=== PATIENT | female | born 1985 | race American Indian/Alaskan Native ===

== ENCOUNTER 2016-07-16 22:40 | Emergency (ER) | payer MEDICAID | END 2016-07-17 01:13 | disposition left against medical advice (07) | LOC: DL.ED 22:40 | DX: Z53.21 Procedure and treatment not carried out due to patient leaving prior to being seen by health care provider (principal) ==

== ENCOUNTER 2016-08-04 17:11 | Emergency (ER) | payer MEDICAID ==
[2016-08-04 18:11] VITALS: BP 137/86
[2016-08-04] MEDS ORDERED: Acetaminophen/HYDROcodone 325-10 MG Tab PO ONE (19:52)
[2016-08-04] MEDS ORDERED: Clindamycin HCl 150 MG Cap PO ONE (19:53)
[2016-08-04] MEDS ORDERED: Lidocaine 2% Viscous Solution 15 ML Cup ONE (20:03)
[2016-08-04] MEDS ORDERED: Lidocaine 2% Viscous Solution 15 ML Cup PO ONE (20:03)
--- NOTE | 2016-08-04 20:03 | EDM.PDOC ---
ED HPI ENT - General Chief Complaint: ENT Problem Stated Complaint: HOLE IN TOOTH Time Seen by Provider: 08/04/16 19:45 Source of Information: Reports: Patient History Limitations: Reports: No limitations - History of Present Illness INITIAL COMMENTS - FREE TEXT/NARRATIVE: This 31 yo female patient reports to the ED with a hole in her tooth (left lower posterior). The patient was seen in the Clinic on Friday, started on Amoxicillin and referred to a dentist. The patient has not been able to get an appointment with the dentist at this time and her pain is getting much worse. The patient has been using OTC medications with little to no symptom relief. 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: Acetaminophen, NSAIDS - Related Data Allergies/ADRs: Allergies Allergy/AdvReac Type Severity Reaction Status Date / Time butorphanol tartrate Allergy Shortness Verified 08/04/16 18:03 [From Stadol] of Breath tramadol Allergy Difficulty Verified 08/04/16 18:03 Breathing Home Meds: Home Meds Insulin Aspart [Novolog Flexpen] 2 units SUBCUT ASDIRECTED PRN 04/12/13 [History ] Sertraline [Zoloft] 125 mg PO DAILY 06/14/14 [History] metFORMIN [Glucophage] 1,000 mg PO BID 06/14/14 [History] Insulin Detemir [Levemir] 65 unit SQ ACBREAKFAST 08/08/14 [History] Albuterol Sulfate [Proventil Hfa] 2 inhalation PO QID PRN 05/25/15 [History] Glimepride 2 mg PO BID 06/03/15 [History] Acetaminophen [Tylenol] 650 mg PO BID 08/07/15 [History] Ibuprofen 400 mg PO BID 08/07/15 [History] ALPRAZolam [Alprazolam] 1 tab PO TID PRN 10/19/15 [History] Insulin Detemir [Levemir] 45 unit SQ BEDTIME 10/29/15 [History] Amoxicillin 500 mg PO BID 08/04/16 [History] Past Medical History - Past Health History Medical/Surgical History: Denies Medical/Surgical History HEENT History: Reports: None Cardiovascular History: Reports: None Respiratory History: Reports: Asthma Gastrointestinal History: Reports: Other (see below) Other Gastrointestinal History: patient has presented to the ED frequently for abdominal pain Genitourinary History: Reports: Pyelonephritis, UTI, recurrent 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 Hematologic History: Reports: None Immunologic History: Reports: None Oncologic (Cancer) History: Reports: None Dermatologic History: Reports: None - Infectious Disease History Infectious Disease History: Reports: Chicken pox Other Infectious Disease History: sore on leg. - Past Surgical History HEENT Surgical History: Reports: Tonsillectomy, Other (see below) Other HEENT Surgeries/Procedures: tubes in ears GI Surgical History: Reports: Cholecystectomy Female Surgical History: Reports: None Social & Family History - Family History Family Medical History: Noncontributory - Tobacco Use Smoking Status *Q: Former Smoker Years of Tobacco use: 1 Packs/Tins Daily: 0.5 Used Tobacco, but Quit: Yes Month Tobacco Last Used: november Second Hand Smoke Exposure: Yes - Caffeine Use Caffeine Use: Reports: None Caffeine Use Comment: daily - Alcohol Use Days Per Week of Alcohol Use: 0 Number of Drinks Per Day: 1 Total Drinks Per Week: 0 - Recreational Drug Use Recreational Drug Use: No - Living Situation & Occupation Living situation: Reports: other (currently in transitional living facility s/p inpt substance abuse treatment August 2015) ED ROS ENT - Review of Systems Review Of Systems: ROS reveals no pertinent complaints other than HPI. ED EXAM, ENT - Physical Exam Exam: See Below Exam Limited By: No limitations General Appearance: alert, WD/WN, moderate distress, obese Eye Exam: bilateral eye: EOMI, normal inspection, PERRL Ears: normal external exam, normal canal, hearing grossly normal, normal TMs Nose: normal inspection, normal mucousa, no blood Mouth/Throat: Normal inspection, Normal gums, Normal lips, Normal oropharynx, Dental abcess, Dental pain, Dental tenderness Head: atraumatic, normocephalic Neck: normal inspection, supple, non-tender, full range of motion Respiratory/Chest: no respiratory distress, lungs clear, normal breath sounds, no accessory muscle use, chest non-tender Cardiovascular: normal peripheral pulses, regular rate, rhythm, no edema, no gallop, no JVD, no murmur, no rub GI/Abdominal: normal bowel sounds, soft, non tender, no organomegaly, no distention, no abnormal bruit, no mass (Female) Exam: Deferred Rectal (Female) Exam: Deferred Back: normal inspection, full range of motion Extremities: normal inspection, normal range of motion, non-tender, no pedal edema, normal capillary refill Neurological: alert, oriented, CN II-XII intact, normal cognition, normal gait, normal reflexes, no motor/sensory deficits Psychiatric: normal affect, normal mood Skin: Warm, Dry, Intact, Normal color, No rash Lymphatic: no adenopathy Course - Vital Signs Last Recorded V/S: Last Vital Signs Temp 35.7 C 08/04/16 18:07 Pulse 80 08/04/16 18:07 Resp 18 08/04/16 18:07 BP 137/86 08/04/16 18:07 Pulse Ox 99 08/04/16 18:07 - Orders/Labs/Meds Orders: Active Orders 24 hr Category Date Time Status Clindamycin HCl [Cleocin] Med 08/04/16 19:53 Once 300 mg PO ONETIME ONE Meds: Medications Discontinued Medications Generic Name Dose Route Start Last Admin Trade Name Nadirq PRN Reason Stop Dose Admin Hydrocodone Bitart/Acetaminophen 1 tab 08/04/16 19:52 [place] 325-10 Mg PO 08/04/16 19:53 ONETIME ONE Departure - Departure Time of Disposition: 19:59 Disposition: Home, Self-Care 01 Condition: fair Clinical Impression: Dental abscess Instructions: Dental Abscess, [id number] Forms: ED Department Discharge Care Plan Goals: The patient was advised of the examination results during the visit. The affected area was sprayed with [place], the patient was given an oral dose of [place] (10/325) and an oral dose of Clindamycin (300 mg) while in the ED. The patient was discharged with Viscous Lidocaine 2% 15 mL to apply 5-10 mL to a cotton ball and apply to the area every 6 hours. The patient was also given a script for Clindamycin (300 mg) #30 to take 1 by mouth 3 times per day for 10 days and Viscous Lidocaine 2% #100 mL to apply 10 mL to a cotton ball applied to the area 4 times per day as needed. The patient should follow-up with a dentist for continued evaluation and further management. - My Orders Last 24 Hours: My Active Orders 08/04/16 19:53 Clindamycin HCl [Cleocin] 300 mg PO ONETIME ONE - Assessment/Plan Last 24 Hours: My Active Orders 08/04/16 19:53 Clindamycin HCl [Cleocin] 300 mg PO ONETIME ONE
== END 2016-08-04 20:08 | disposition home or self-care (01) ==
LOC: DL.ED 17:11
DX: K04.7 Periapical abscess without sinus (principal); J45.909 Unspecified asthma, uncomplicated; F41.9 Anxiety disorder, unspecified; E11.9 Type 2 diabetes mellitus without complications; E66.9 Obesity, unspecified; Z88.5 Allergy status to narcotic agent; Z87.440 Personal history of urinary (tract) infections; Z90.49 Acquired absence of other specified parts of digestive tract; Z79.4 Long term (current) use of insulin; Z79.84 Long term (current) use of oral hypoglycemic drugs; Z79.899 Other long term (current) drug therapy; Z98.890 Other specified postprocedural states; Z87.891 Personal history of nicotine dependence
CPT/HCPCS: 99282; A9270

== ENCOUNTER 2016-08-16 11:38 | Emergency (ER) | payer MEDICAID ==
[2016-08-16 11:46] VITALS: BP 131/74
--- NOTE | 2016-08-16 11:47 | EDM.PDOC ---
ED HPI ENT - General Chief Complaint: ENT Problem Stated Complaint: HOLE IN TOOTH, FACE PAIN Time Seen by Provider: 08/16/16 11:45 Source of Information: Reports: Patient, Old records, RN, RN notes reviewed History Limitations: Reports: No limitations - History of Present Illness INITIAL COMMENTS - FREE TEXT/NARRATIVE: C/O "A hole in tooth" with uncontrolled dental pain. Pt was seen here on 08/04/16 for same tooth pain and tx by Praveen BETANCOURT with Hinkle, Clindamycin 300mg, and Viscous Lidocaine 2%. She was to be referred from clinic to a dentist, but has not been able to see a dentist yet. Now pt reports the pain is radiating to the left ear and scalp/head. Denies fever or chills, or drainage from the tooth or gums. 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, Other medication(s) - Related Data Allergies/ADRs: Allergies Allergy/AdvReac Type Severity Reaction Status Date / Time butorphanol tartrate Allergy Shortness Verified 08/16/16 11:47 [From Stadol] of Breath diclofenac Allergy Itching Verified 08/16/16 11:47 tramadol Allergy Difficulty Verified 08/16/16 11:47 Breathing Home Meds: Home Meds Insulin Aspart [Novolog Flexpen] 23 units SUBCUT ASDIRECTED 04/12/13 [History] Sertraline [Zoloft] 125 mg PO DAILY 06/14/14 [History] metFORMIN [Glucophage] 1,000 mg PO BID 06/14/14 [History] Insulin Detemir [Levemir] 65 unit SQ ACBREAKFAST 08/08/14 [History] Albuterol Sulfate [Proventil Hfa] 2 inhalation PO QID PRN 05/25/15 [History] Glimepride 2 mg PO BID 06/03/15 [History] Acetaminophen [Tylenol] 650 mg PO BID 08/07/15 [History] Ibuprofen 800 mg PO Q8HR PRN 08/07/15 [History] ALPRAZolam [Alprazolam] 1 tab PO TID PRN 10/19/15 [History] Insulin Detemir [Levemir] 45 unit SQ BEDTIME 10/29/15 [History] Past Medical History - Past Health History Medical/Surgical History: Denies Medical/Surgical History HEENT History: Reports: None Cardiovascular History: Reports: None Respiratory History: Reports: Asthma Gastrointestinal History: Reports: Other (see below) Other Gastrointestinal History: patient has presented to the ED frequently for abdominal pain Genitourinary History: Reports: Pyelonephritis, UTI, recurrent 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 Hematologic History: Reports: None Immunologic History: Reports: None Oncologic (Cancer) History: Reports: None Dermatologic History: Reports: None - Infectious Disease History Infectious Disease History: Reports: Chicken pox Other Infectious Disease History: sore on leg. - Past Surgical History HEENT Surgical History: Reports: Tonsillectomy, Other (see below) Other HEENT Surgeries/Procedures: tubes in ears GI Surgical History: Reports: Cholecystectomy Female Surgical History: Reports: None Social & Family History - Family History Family Medical History: Noncontributory - Tobacco Use Smoking Status *Q: Former Smoker Years of Tobacco use: 1 Packs/Tins Daily: 0.5 Used Tobacco, but Quit: Yes Month Tobacco Last Used: november Second Hand Smoke Exposure: Yes - Caffeine Use Caffeine Use: Reports: None Caffeine Use Comment: daily - Alcohol Use Days Per Week of Alcohol Use: 0 Number of Drinks Per Day: 1 Total Drinks Per Week: 0 - Recreational Drug Use Recreational Drug Use: No - Living Situation & Occupation Living situation: Reports: other (currently in transitional living facility s/p inpt substance abuse treatment August 2015) ED ROS ENT - Review of Systems Review Of Systems: ROS reveals no pertinent complaints other than HPI. ED EXAM, ENT - Physical Exam Exam: See Below Exam Limited By: No limitations General Appearance: alert, WD/WN, no apparent distress, obese Eye Exam: bilateral eye: normal inspection Ears: normal external exam, normal canal, hearing grossly normal, normal TMs Nose: normal inspection, normal mucousa, no blood Mouth/Throat: Normal lips, Normal oropharynx, Dental pain, Dental tenderness, Other (dental caries) Head: atraumatic, normocephalic Neck: normal inspection, supple, non-tender, full range of motion Respiratory/Chest: no respiratory distress Cardiovascular: regular rate, rhythm Neurological: alert, oriented, no motor/sensory deficits Psychiatric: normal mood Skin: Warm, Dry, Intact, Normal color, No rash Course - Vital Signs Last Recorded V/S: Last Vital Signs Temp 36.1 C 08/16/16 11:45 Pulse 66 08/16/16 11:45 Resp 18 08/16/16 11:45 BP 131/74 08/16/16 11:45 Pulse Ox 100 08/16/16 11:45 - Orders/Labs/Meds Meds: Medications Discontinued Medications Generic Name Dose Route Start Last Admin Trade Name Nadirq PRN Reason Stop Dose Admin Bupivacaine HCl 10 ml 08/16/16 12:06 08/16/16 12:11 Sensorcaine-Mpf 0.25% INJECT 08/16/16 12:07 10 ml ONETIME ONE Administration Lidocaine HCl 15 ml 08/16/16 12:05 08/16/16 12:11 Xylocaine 2% Viscous MUCMEM 08/16/16 12:06 15 ml ONETIME ONE Administration - Re-Assessments/Exams Free Text/Narrative Re-Assessment/Exam: 08/16/16 12:36 Left mandibular regional dental block with Marcaine 0.25% 6mls, no complications. Departure - Departure Time of Disposition: 12:37 Disposition: Home, Self-Care 01 Condition: fair Clinical Impression: Dental caries, Pain due to dental caries Instructions: Dental Caries Forms: ED Department Discharge Additional Instructions: Rx: Decadron 4mg Rx: Hinkle 5mg/325mg Follow up Friday, August 20 at [facility].
[2016-08-16] MEDS ORDERED: Lidocaine 2% Viscous Solution 15 ML Cup MUCMEM ONE (12:05)
[2016-08-16] MEDS ORDERED: Bupivacaine 0.25% 10 ML SDV INJECT ONE (12:06)
== END 2016-08-16 12:50 | disposition home or self-care (01) ==
LOC: DL.ED 11:38
DX: K02.9 Dental caries, unspecified (principal); J45.909 Unspecified asthma, uncomplicated; F41.9 Anxiety disorder, unspecified; E11.9 Type 2 diabetes mellitus without complications; E66.9 Obesity, unspecified; Z87.891 Personal history of nicotine dependence; Z88.8 Allergy status to other drugs, medicaments and biological substances; Z88.5 Allergy status to narcotic agent; Z79.4 Long term (current) use of insulin; Z79.84 Long term (current) use of oral hypoglycemic drugs; Z79.899 Other long term (current) drug therapy; Z87.440 Personal history of urinary (tract) infections; Z98.890 Other specified postprocedural states; Z90.49 Acquired absence of other specified parts of digestive tract
CPT/HCPCS: 64400; 96372; 99284; A9270

== ENCOUNTER 2016-09-02 20:51 | Emergency (ER) | payer MEDICAID, OTHER ==
--- NOTE | 2016-09-02 21:00 | EDM.PDOC ---
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/ADRs: Allergies butorphanol tartrate [From Stadol] Allergy (Verified 09/02/16 20:57) Shortness of Breath Tingling, got numb, throat felt like it was closing 06/14/14 patient states gets hives diclofenac Allergy (Verified 09/02/16 20:57) Itching tramadol Allergy (Verified 09/02/16 20:57) Difficulty Breathing Nausea 06/14/14 patient states gets hives Home Medications: Ambulatory Orders Insulin Aspart [Novolog Flexpen] 23 units SUBCUT ASDIRECTED 04/12/13 [Confirmed 08/16/16] Sertraline [Zoloft] 125 mg PO DAILY 06/14/14 [Confirmed 08/16/16] metFORMIN [Glucophage] 1,000 mg PO BID 06/14/14 [Confirmed 08/16/16] Insulin Detemir [Levemir] 65 unit SQ ACBREAKFAST 08/08/14 [Confirmed 08/16/16] Albuterol Sulfate [Proventil Hfa] 2 inhalation PO QID PRN 05/25/15 [Confirmed ] Glimepride 2 mg PO BID 06/03/15 [Confirmed 08/16/16] Acetaminophen [Tylenol] 650 mg PO BID 08/07/15 [Confirmed 08/16/16] Ibuprofen 800 mg PO Q8HR PRN 08/07/15 [Confirmed 08/16/16] ALPRAZolam [Alprazolam] 1 tab PO TID PRN 10/19/15 [Confirmed 08/16/16] Insulin Detemir [Levemir] 45 unit SQ BEDTIME 10/29/15 [Confirmed 08/16/16] Past Medical History - Past Health History Medical/Surgical History: Denies Medical/Surgical History HEENT History: Reports: None Cardiovascular History: Reports: None Respiratory History: Reports: Asthma Gastrointestinal History: Reports: Other (see below) Other Gastrointestinal History: patient has presented to the ED frequently for abdominal pain Genitourinary History: Reports: Pyelonephritis, UTI, recurrent 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 Hematologic History: Reports: None Immunologic History: Reports: None Oncologic (Cancer) History: Reports: None Dermatologic History: Reports: None - Infectious Disease History Infectious Disease History: Reports: Chicken pox Other Infectious Disease History: sore on leg. - Past Surgical History HEENT Surgical History: Reports: Tonsillectomy, Other (see below) Other HEENT Surgeries/Procedures: tubes in ears GI Surgical History: Reports: Cholecystectomy Female Surgical History: Reports: None Social & Family History - Family History Family Medical History: Noncontributory - Tobacco Use Smoking Status *Q: Former Smoker Years of Tobacco use: 1 Packs/Tins Daily: 0.5 Used Tobacco, but Quit: Yes Month Tobacco Last Used: november Second Hand Smoke Exposure: Yes - Caffeine Use Caffeine Use: Reports: None Caffeine Use Comment: daily - Alcohol Use Days Per Week of Alcohol Use: 0 Number of Drinks Per Day: 1 Total Drinks Per Week: 0 - Recreational Drug Use Recreational Drug Use: No - Living Situation & Occupation Living situation: Reports: other (currently in transitional living facility s/p in substance abuse treatment August 2015) Review of Systems - Review of Systems Review Of Systems: ROS reveals no pertinent complaints other than HPI. Trauma Exam - Physical Exam Exam: See Below Exam Limited By: No limitations General Appearance: Reports: alert, WD/WN, mild distress, other (tearful) Head: Reports: atraumatic Ears: Reports: hearing grossly normal Throat/Mouth: Reports: Normal voice, No airway compromise Neck: Reports: non-tender, full range of motion Respiratory Exam: Reports: no respiratory distress Cardiovascular: Reports: regular rate, rhythm GI/Abdominal: Reports: soft, non tender Extremities: Reports: pain with movement, tenderness, other (left wrist tender swollen, NV wnl) Neurologic: Reports: no motor/sensory deficits, alert, oriented x 3 Course - Vital Signs Last Recorded V/S: Last Vital Signs Temp 35.7 C 09/02/16 20:58 Pulse 78 09/02/16 20:58 Resp 18 09/02/16 20:58 BP 130/76 09/02/16 20:58 Pulse Ox 98 09/02/16 20:58 - Orders/Labs/Meds Meds: Medications Discontinued Medications Generic Name Dose Route Start Last Admin Trade Name Yolanda PRN Reason Stop Dose Admin Hydrocodone Bitart/Acetaminophen 1 tab 09/02/16 21:12 09/02/16 21:16 [place] 325-10 Mg PO 09/02/16 21:13 1 tab ONETIME ONE Administration - Re-Assessments/Exams Free Text/Narrative Re-Assessment/Exam: 09/02/16 21:38 results discussed with Pt. Departure - Departure Time of Disposition: 21:39 Disposition: Home, Self-Care 01 Condition: good Clinical Impression: Radial styloid fracture Qualifiers: Encounter type: initial encounter Fracture type: closed Fracture alignment: nondisplaced Laterality: left Qualified Code(s): S52.515A - Nondisplaced fracture of left radial styloid process, initial encounter for closed fracture Instructions: Wrist Fracture Treated With Immobilization, [id number] Forms: ED Department Discharge Additional Instructions: 1) wear brace and sling next 4 to 5 days 2) call ORTHOPEDIST TOMORROW
[2016-09-02 21:01] VITALS: BP 130/76
[2016-09-02] MEDS ORDERED: Acetaminophen/HYDROcodone 325-10 MG Tab PO ONE (21:12)
== END 2016-09-02 21:44 | disposition home or self-care (01) ==
LOC: DL.ED 20:51
DX: S52.515A Nondisplaced fracture of left radial styloid process, initial encounter for closed fracture (principal); F41.9 Anxiety disorder, unspecified; E11.9 Type 2 diabetes mellitus without complications; E66.9 Obesity, unspecified; J45.909 Unspecified asthma, uncomplicated; Z88.5 Allergy status to narcotic agent; Z88.8 Allergy status to other drugs, medicaments and biological substances; Z79.4 Long term (current) use of insulin; Z79.84 Long term (current) use of oral hypoglycemic drugs; Z79.899 Other long term (current) drug therapy; Z87.440 Personal history of urinary (tract) infections; Z98.890 Other specified postprocedural states; Z90.49 Acquired absence of other specified parts of digestive tract; Z87.891 Personal history of nicotine dependence; W20.8XXA Other cause of strike by thrown, projected or falling object, initial encounter
CPT/HCPCS: 73110; 99283; A9270; L3908

== ENCOUNTER 2016-09-03 15:48 | Emergency (ER) | payer MEDICAID, OTHER ==
[2016-09-03 15:59] VITALS: BP 140/84
--- NOTE | 2016-09-03 16:02 | EDM.PDOC ---
ED HPI Trauma - General Chief Complaint: Upper Extremity Injury/Pain Stated Complaint: [id number] BROKEN WRIST SOMETHING FELL ON IT Time Seen by Provider: 09/03/16 16:02 Source: Reports: Patient, Old records, RN, RN notes reviewed History Limitations: Reports: No limitations - History of Present Illness INITIAL COMMENTS - FREE TEXT/NARRATIVE: Seen here last night and diagnosed with left wrist fracture. Unable to see primary doctor today for pain management. She was unable to be seen by another provider because she is on a narcotics monitoring program through the state. Denies any new injury. She complains that the velcro splint given last night does not give support and she complains of swelling. Symptom Onset Date: 09/03/16 Severity: moderate Pain/Injury Location: Reports: upper extremity, left Allergies/ADRs: Allergies butorphanol tartrate [From Stadol] Allergy (Verified 09/02/16 20:57) Shortness of Breath Tingling, got numb, throat felt like it was closing 06/14/14 patient states gets hives diclofenac Allergy (Verified 09/02/16 20:57) Itching tramadol Allergy (Verified 09/02/16 20:57) Difficulty Breathing Nausea 06/14/14 patient states gets hives Home Medications: Ambulatory Orders Insulin Aspart [Novolog Flexpen] 23 units SUBCUT ASDIRECTED 04/12/13 [Confirmed 09/03/16] Sertraline [Zoloft] 125 mg PO DAILY 06/14/14 [Confirmed 09/03/16] metFORMIN [Glucophage] 1,000 mg PO BID 06/14/14 [Confirmed 09/03/16] Insulin Detemir [Levemir] 65 unit SQ ACBREAKFAST 08/08/14 [Confirmed 09/03/16] Albuterol Sulfate [Proventil Hfa] 2 inhalation PO QID PRN 05/25/15 [Confirmed ] Glimepride 2 mg PO BID 06/03/15 [Confirmed 09/03/16] Acetaminophen [Tylenol] 650 mg PO BID 08/07/15 [Confirmed 09/03/16] Ibuprofen 800 mg PO Q8HR PRN 08/07/15 [Confirmed 09/03/16] ALPRAZolam [Alprazolam] 1 tab PO TID PRN 10/19/15 [Confirmed 09/03/16] Insulin Detemir [Levemir] 45 unit SQ BEDTIME 10/29/15 [Confirmed 09/03/16] Past Medical History - Past Health History Medical/Surgical History: Denies Medical/Surgical History HEENT History: Reports: None Cardiovascular History: Reports: None Respiratory History: Reports: Asthma Gastrointestinal History: Reports: Other (see below) Other Gastrointestinal History: patient has presented to the ED frequently for abdominal pain Genitourinary History: Reports: Pyelonephritis, UTI, recurrent 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 Hematologic History: Reports: None Immunologic History: Reports: None Oncologic (Cancer) History: Reports: None Dermatologic History: Reports: None - Infectious Disease History Infectious Disease History: Reports: Chicken pox Other Infectious Disease History: sore on leg. - Past Surgical History HEENT Surgical History: Reports: Tonsillectomy, Other (see below) Other HEENT Surgeries/Procedures: tubes in ears GI Surgical History: Reports: Cholecystectomy Female Surgical History: Reports: None Social & Family History - Family History Family Medical History: Noncontributory - Tobacco Use Smoking Status *Q: Former Smoker Years of Tobacco use: 1 Packs/Tins Daily: 0.5 Used Tobacco, but Quit: Yes Month Tobacco Last Used: november Second Hand Smoke Exposure: Yes - Caffeine Use Caffeine Use: Reports: None Caffeine Use Comment: daily - Alcohol Use Days Per Week of Alcohol Use: 0 Number of Drinks Per Day: 1 Total Drinks Per Week: 0 - Recreational Drug Use Recreational Drug Use: No - Living Situation & Occupation Living situation: Reports: other (currently in transitional living facility s/p inpt substance abuse treatment August 2015) Review of Systems - Review of Systems Review Of Systems: ROS reveals no pertinent complaints other than HPI. Trauma Exam - Physical Exam Exam: See Below Exam Limited By: No limitations General Appearance: Reports: alert, WD/WN, no apparent distress Head: Reports: atraumatic, normocephalic Respiratory Exam: Reports: no respiratory distress Cardiovascular: Reports: normal peripheral pulses Extremities: Reports: bony-point tenderness (left radial wrist. ), pain with movement (with moderate swelling left wrist with bruising. ) Neurologic: Reports: no motor/sensory deficits, alert, normal mood/affect, oriented x 3 ED TRAUMA EXTREMITY PROCEDURES - Splinting Left Upper Extremity Splint site: wrist Pre-procedure NV status: normal Post-procedure NV status: normal Splint material: fiberglass Splint design: volar Applied & form fitted by: provider Provider post-splint application NV check: NV status normal, good position Complications: No Course - Vital Signs Last Recorded V/S: Last Vital Signs Temp 36.6 C 09/03/16 15:55 Pulse 72 09/03/16 15:55 Resp 16 09/03/16 15:55 BP 140/84 09/03/16 15:55 Pulse Ox - Orders/Labs/Meds Orders: Active Orders 24 hr Category Date Time Status Splinting [RC] ASDIRECTED Care 09/03/16 16:14 Active Meds: Medications Discontinued Medications Generic Name Dose Route Start Last Admin Trade Name Freq PRN Reason Stop Dose Admin Hydrocodone Bitart/Acetaminophen 1 tab 09/03/16 16:11 09/03/16 16:30 [place] 325-10 Mg PO 09/03/16 16:12 1 tab ONETIME ONE Administration - Radiology Interpretation Free Text/Narrative:: 09/02/16 left wrist x-ray was reviewed. Departure - Departure Time of Disposition: 16:26 Disposition: Home, Self-Care 01 Condition: good Clinical Impression: Left wrist fracture Qualifiers: Encounter type: subsequent encounter Fracture healing: with routine healing Qualified Code(s): S62.102D - Fracture of unspecified carpal bone, left wrist, subsequent encounter for fracture with routine healing Instructions: Wrist Fracture Treated With Immobilization, [id number] Forms: ED Department Discharge Additional Instructions: Go to clinic immediately for prescription from Dr. Burton (her nurse has the prescription). Confirm your appointment for tomorrow with Dr. Jeff Quiñonez. Follow up with orthopedic assistant as previously instructed by Dr. Cruz. - My Orders Last 24 Hours: My Active Orders 09/03/16 16:14 Splinting [RC] ASDIRECTED - Assessment/Plan Last 24 Hours: My Active Orders 09/03/16 16:14 Splinting [RC] ASDIRECTED
[2016-09-03] MEDS ORDERED: Acetaminophen/HYDROcodone 325-10 MG Tab PO ONE (16:11)
== END 2016-09-03 16:40 | disposition home or self-care (01) ==
LOC: DL.ED 15:48
DX: S62.102D Fracture of unspecified carpal bone, left wrist, subsequent encounter for fracture with routine healing (principal); S60.212A Contusion of left wrist, initial encounter; J45.909 Unspecified asthma, uncomplicated; F41.9 Anxiety disorder, unspecified; E11.9 Type 2 diabetes mellitus without complications; E66.9 Obesity, unspecified; Z87.891 Personal history of nicotine dependence; Z87.440 Personal history of urinary (tract) infections; Z79.4 Long term (current) use of insulin; Z79.84 Long term (current) use of oral hypoglycemic drugs; Z79.899 Other long term (current) drug therapy; Z98.890 Other specified postprocedural states; Z90.49 Acquired absence of other specified parts of digestive tract; Z88.5 Allergy status to narcotic agent; Z88.8 Allergy status to other drugs, medicaments and biological substances; W20.8XXD Other cause of strike by thrown, projected or falling object, subsequent encounter
CPT/HCPCS: 29125; 99282; A9270

== ENCOUNTER 2016-09-10 23:12 | Emergency (ER) | payer MEDICAID, OTHER ==
[2016-09-10 23:32] VITALS: BP 165/85
[2016-09-11] MEDS ORDERED: Acetaminophen/HYDROcodone 325-5 MG Tab PO ONE (00:17)
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
== END 2016-09-11 00:39 | disposition home or self-care (01) ==
LOC: DL.ED 23:12
DX: S90.01XA Contusion of right ankle, initial encounter (principal); S90.31XA Contusion of right foot, initial encounter; J45.909 Unspecified asthma, uncomplicated; E11.9 Type 2 diabetes mellitus without complications; F41.9 Anxiety disorder, unspecified; E66.9 Obesity, unspecified; Z87.891 Personal history of nicotine dependence; Z88.8 Allergy status to other drugs, medicaments and biological substances; Z79.899 Other long term (current) drug therapy; Z90.49 Acquired absence of other specified parts of digestive tract; Y04.8XXA Assault by other bodily force, initial encounter
CPT/HCPCS: 73610; 73630; 99283; A9270

== ENCOUNTER 2016-09-19 20:47 | Emergency (ER) | payer MEDICAID, OTHER ==
[2016-09-19] MEDS ORDERED: Acetaminophen/HYDROcodone 325-10 MG Tab PO ONE (22:13)
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
== END 2016-09-19 23:26 | disposition home or self-care (01) ==
LOC: DL.ED 20:47
DX: S50.02XA Contusion of left elbow, initial encounter (principal); J45.909 Unspecified asthma, uncomplicated; F41.9 Anxiety disorder, unspecified; E11.9 Type 2 diabetes mellitus without complications; F17.210 Nicotine dependence, cigarettes, uncomplicated; E66.9 Obesity, unspecified; Z98.890 Other specified postprocedural states; Z88.8 Allergy status to other drugs, medicaments and biological substances; Z88.5 Allergy status to narcotic agent; Z79.4 Long term (current) use of insulin; Z79.84 Long term (current) use of oral hypoglycemic drugs; V49.9XXA Car occupant (driver) (passenger) injured in unspecified traffic accident, initial encounter
CPT/HCPCS: 73070; 99284; A9270

== ENCOUNTER 2016-09-29 14:45 | Emergency (ER) | payer MEDICAID ==
--- NOTE | 2016-09-29 15:11 | EDM.PDOC ---
[id number] 4d TOOTH INFECTION, [id number] Time Seen by Provider: 09/29/16 15:11 Source of Information: Reports: Patient History Limitations: Reports: No Limitations - History of Present Illness INITIAL COMMENTS - FREE TEXT/NARRATIVE: chronic pain in left lower post molar that is cracked. has been seen in ER in August 2016 for this and given pain med and lidocaine gel. told to see dentist and has not had appointment yet. no swelling in jaw/gum. just pain. using over the counter motrin. - Related Data Allergies Allergy/AdvReac Type Severity Reaction Status Date / Time butorphanol tartrate Allergy Shortness Verified 09/29/16 15:11 [From Stadol] of Breath diclofenac Allergy Itching Verified 09/29/16 15:11 tramadol Allergy Difficulty Verified 09/29/16 15:11 Breathing Home Meds: Home Meds Insulin Aspart [Novolog Flexpen] 23 units SUBCUT ASDIRECTED 04/12/13 [History] Sertraline [Zoloft] 125 mg PO DAILY 06/14/14 [History] metFORMIN [Glucophage] 1,000 mg PO BID 06/14/14 [History] Insulin Detemir [Levemir] 65 unit SQ ACBREAKFAST 08/08/14 [History] Albuterol Sulfate [Proventil Hfa] 2 inhalation PO QID PRN 05/25/15 [History] Glimepride 2 mg PO BID 06/03/15 [History] Acetaminophen [Tylenol] 650 mg PO BID 08/07/15 [History] Ibuprofen 800 mg PO Q8HR PRN 08/07/15 [History] ALPRAZolam [Alprazolam] 1 tab PO TID PRN 10/19/15 [History] Insulin Detemir [Levemir] 45 unit SQ BEDTIME 10/29/15 [History] Past Medical History - Past Health History Medical/Surgical History: Denies Medical/Surgical History HEENT History: Reports: None Cardiovascular History: Reports: None Respiratory History: Reports: Asthma Gastrointestinal History: Reports: Other (See Below) Other Gastrointestinal History: patient has presented to the ED frequently for abdominal pain Genitourinary History: Reports: Pyelonephritis, UTI, 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 Hematologic History: Reports: None Immunologic History: Reports: None Oncologic (Cancer) History: Reports: None Dermatologic History: Reports: None - Infectious Disease History Infectious Disease History: Reports: Chicken Pox, MRSA Other Infectious Disease History: sore on leg. - Past Surgical History HEENT Surgical History: Reports: Tonsillectomy, Other (See Below) Musculoskeletal Surgical History: Reports: Carpal Tunnel Social & Family History - Family History Family Medical History: Noncontributory - Tobacco Use Smoking Status *Q: Former Smoker Years of Tobacco use: 2 Packs/Tins Daily: 0.1 Used Tobacco, but Quit: No Month Tobacco Last Used: 05 Second Hand Smoke Exposure: No - Caffeine Use Caffeine Use: Reports: Coffee, Tea Caffeine Use Comment: daily - Alcohol Use Days Per Week of Alcohol Use: 0 Number of Drinks Per Day: 1 Total Drinks Per Week: 0 - Recreational Drug Use Recreational Drug Use: No - Living Situation & Occupation Living situation: Reports: Other ED ROS GENERAL - Review of Systems Review Of Systems: See Below HEENT: Reports: Other (chronic dental pain) ED EXAM, DIZZINESS - Physical Exam Exam: See Below Exam Limited By: No Limitations General Appearance: Alert Ears: Normal External Exam, Normal Canal, Hearing Grossly Normal, Normal TMs Nose: Normal Inspection, Normal Mucosa Throat/Mouth: Normal Inspection, Normal Gums, Other (left lower post molar shows fracture, gum without edema/erythema. no facial swelling. no ant/post lymphadenopathy.) Neck: Normal Inspection, Supple, Non-Tender Respiratory/Chest: No Respiratory Distress, Lungs Clear, Normal Breath Sounds Course - Vital Signs Text/Narrative:: This is chronic and is not new. She has already been seen by ER before. Advised would prescribe motrin, but if she wants something stronger she will need to see dentist or pcp. Her pcp should control any pain meds. She is not in distress , no evidence of infection. She does not want script for motrin. Advise over the counter anbasol, cement to area. She must see her dentist or pcp as this is chronic for a narcotic pain med and definitive care. Last Recorded V/S: Last Vital Signs Temp 36.2 C 05/28/17 15:12 Pulse 70 09/29/16 15:12 Resp 16 09/29/16 15:12 BP 126/76 09/29/16 15:12 Pulse Ox 98 09/29/16 15:12 Departure - Departure Time of Disposition: 15:26 Disposition: Home, Self-Care 01 Condition: good Clinical Impression: Chronic dental pain - Discharge Information Referrals: Billy Burton MD [Primary Care Provider] - Forms: ED Department Discharge Additional Instructions: This dental pain is chronic. You must see a dentist as soon as possible. You must see your primary care provider for any pain management aside from over the counter tylenol or motrin.
[2016-09-29 15:14] VITALS: BP 126/76
== END 2016-09-29 15:32 | disposition home or self-care (01) ==
LOC: DL.ED 14:45
DX: G89.29 Other chronic pain (principal); K08.89 Other specified disorders of teeth and supporting structures; J45.909 Unspecified asthma, uncomplicated; E11.9 Type 2 diabetes mellitus without complications; E66.9 Obesity, unspecified; Z87.891 Personal history of nicotine dependence; Z88.8 Allergy status to other drugs, medicaments and biological substances; Z88.6 Allergy status to analgesic agent; Z79.899 Other long term (current) drug therapy; Z79.4 Long term (current) use of insulin; Z87.440 Personal history of urinary (tract) infections; F41.9 Anxiety disorder, unspecified; Z79.84 Long term (current) use of oral hypoglycemic drugs; Z98.890 Other specified postprocedural states
CPT/HCPCS: 99282

== ENCOUNTER 2016-10-11 08:46 | Emergency (ER) | payer MEDICAID, OTHER ==
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
[2016-10-11 09:02] VITALS: BP 141/90
[2016-10-11 09:31] LABS: CHLORIDE,CL 103 mmol/L (101-111); SODIUM,NA 134 mmol/L (135-145)
[2016-10-11] MEDS ORDERED: Clindamycin HCl 150 MG Cap PO ONE (09:35)
[2016-10-11] MEDS ORDERED: Bacitracin Oint 1 GM U/D Packet TOP ONE (09:35)
[2016-10-11] MEDS ORDERED: Acetaminophen/HYDROcodone 325-10 MG Tab PO ONE (09:36)
--- NOTE | 2016-10-11 10:03 | CR ---
Medical history: 31-year-old female right foot and ankle injury. Interpretation: Abnormal. 3 views right foot and additional views ipsilateral right confirm bimalleolar soft tissue swelling, ankle joint effusion, and acute spiral nondisplaced fracture of the distal right fibula. No associat ed fractures of the adjacent right tibia or disruption of the tibiotalar mortise joint. Small heel spur at the insertion plantar aponeurosis base of the os calcis. No foreign bodies. No metatarsal or forefoot fracture/dislocation right foot. Nondisplaced abnormal. Views left views o f the foot injury
--- NOTE | 2016-10-11 10:05 | CR ---
Conclusion: Severe sprain and nondisplaced fracture distal right fibula.
== END 2016-10-11 10:16 | disposition home or self-care (01) ==
LOC: DL.ED 08:46
DX: S82.831A Other fracture of upper and lower end of right fibula, initial encounter for closed fracture (principal); E11.621 Type 2 diabetes mellitus with foot ulcer; L97.511 Non-pressure chronic ulcer of other part of right foot limited to breakdown of skin; J45.909 Unspecified asthma, uncomplicated; F41.9 Anxiety disorder, unspecified; E66.9 Obesity, unspecified; Z87.891 Personal history of nicotine dependence; Z98.890 Other specified postprocedural states; Z88.5 Allergy status to narcotic agent; Z88.8 Allergy status to other drugs, medicaments and biological substances; Z79.4 Long term (current) use of insulin; Z87.440 Personal history of urinary (tract) infections; X58.XXXA Exposure to other specified factors, initial encounter
CPT/HCPCS: 36415; 73610; 73630; 80048; 85025; 86140; 99283; A9270

== ENCOUNTER 2016-10-13 15:52 | Emergency (ER) | payer MEDICAID ==
--- NOTE | 2016-10-13 16:12 | EDM.PDOC ---
ED HPI GENERAL MEDICAL PROBLEM - General Chief Complaint: Lower Extremity Injury/Pain Stated Complaint: SEVERE PAIN IN ANKLE Time Seen by Provider: 10/13/16 16:12 Source of Information: Reports: Patient, Old Records, RN, RN Notes Reviewed History Limitations: Reports: No Limitations - History of Present Illness INITIAL COMMENTS - FREE TEXT/NARRATIVE: Complaining of right ankle pain due to fracture and she has run out of pain medications. Quality: Reports: Ache Severity: Severe Improves with: Reports: None Worsens with: Reports: None Associated Symptoms: Reports: No Other Symptoms Right Leg Pain Score (Numeric/FACES): 9 - Related Data Allergies Allergy/AdvReac Type Severity Reaction Status Date / Time butorphanol tartrate Allergy Shortness Verified 10/13/16 16:22 [From Stadol] of Breath diclofenac Allergy Itching Verified 10/13/16 16:22 tramadol Allergy Difficulty Verified 10/13/16 16:22 Breathing Home Meds: Home Meds Insulin Aspart [Novolog Flexpen] 23 units SUBCUT ASDIRECTED 04/12/13 [History] Sertraline [Zoloft] 125 mg PO DAILY 06/14/14 [History] metFORMIN [Glucophage] 1,000 mg PO BID 06/14/14 [History] Insulin Detemir [Levemir] 65 unit SQ ACBREAKFAST 08/08/14 [History] Albuterol Sulfate [Proventil Hfa] 2 inhalation PO QID PRN 05/25/15 [History] Glimepride 2 mg PO BID 06/03/15 [History] Acetaminophen [Tylenol] 650 mg PO BID 08/07/15 [History] Ibuprofen 800 mg PO Q8HR PRN 08/07/15 [History] ALPRAZolam [Alprazolam] 1 tab PO TID PRN 10/19/15 [History] Insulin Detemir [Levemir] 45 unit SQ BEDTIME 10/29/15 [History] Past Medical History - Past Health History Medical/Surgical History: Denies Medical/Surgical History HEENT History: Reports: None Cardiovascular History: Reports: None Respiratory History: Reports: Asthma Gastrointestinal History: Reports: Other (See Below) Other Gastrointestinal History: patient has presented to the ED frequently for abdominal pain Genitourinary History: Reports: Pyelonephritis, UTI, 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 Hematologic History: Reports: None Immunologic History: Reports: None Oncologic (Cancer) History: Reports: None Dermatologic History: Reports: None - Infectious Disease History Infectious Disease History: Reports: Chicken Pox, MRSA Other Infectious Disease History: sore on leg. - Past Surgical History HEENT Surgical History: Reports: Tonsillectomy, Other (See Below) Musculoskeletal Surgical History: Reports: Carpal Tunnel Social & Family History - Family History Family Medical History: Noncontributory - Tobacco Use Smoking Status *Q: Former Smoker Years of Tobacco use: 2 Packs/Tins Daily: 0.1 Used Tobacco, but Quit: No Month Tobacco Last Used: 05 Second Hand Smoke Exposure: No - Caffeine Use Caffeine Use: Reports: Coffee, Tea Caffeine Use Comment: daily - Alcohol Use Days Per Week of Alcohol Use: 0 Number of Drinks Per Day: 1 Total Drinks Per Week: 0 - Recreational Drug Use Recreational Drug Use: No - Living Situation & Occupation Living situation: Reports: Other Review of Systems - Review of Systems Review Of Systems: ROS reveals no pertinent complaints other than HPI. ED EXAM, GENERAL - Physical Exam Exam: See Below Exam Limited By: No Limitations General Appearance: Obese Respiratory/Chest: No Respiratory Distress Extremities: Other (right lower extremity in high ortho boot. Moderate swelling and bruising. No erythema. Skin is intact.) Neurological: Alert, Oriented, CN II-XII Intact, Normal Cognition, Normal Gait, Normal Reflexes, No Motor/Sensory Deficits Psychiatric: Normal Affect, Normal Mood Course - Vital Signs Last Recorded V/S: Last Vital Signs Temp 35.5 C 10/13/16 16:16 Pulse 72 10/13/16 16:16 Resp 16 10/13/16 16:16 BP 136/87 10/13/16 16:16 Pulse Ox 99 10/13/16 16:16 Departure - Departure Time of Disposition: 16:29 Disposition: Home, Self-Care 01 Condition: good Clinical Impression: Closed traumatic nondisplaced fracture of distal end of right fibula Qualifiers: Encounter type: subsequent encounter Fracture healing: with routine healing Qualified Code(s): S82.831D - Other fracture of upper and lower end of right fibula, subsequent encounter for closed fracture with routine healing - Discharge Information Instructions: Undisplaced Fibular Ankle Fracture Treated With Immobilization, Adult Forms: ED Department Discharge Additional Instructions: RX: Vicodin 10mg/325mg #4. Follow up in clinic tomorrow for pain management.
[2016-10-13 16:21] VITALS: BP 136/87
[2016-10-13] MEDS ORDERED: Acetaminophen/HYDROcodone 325-10 MG Tab ONE (16:32)
[2016-10-13] MEDS ORDERED: Acetaminophen/HYDROcodone 325-10 MG Tab PO ONE (16:35)
== END 2016-10-13 16:52 | disposition home or self-care (01) ==
LOC: DL.ED 15:52
DX: S82.831D Other fracture of upper and lower end of right fibula, subsequent encounter for closed fracture with routine healing (principal); J45.909 Unspecified asthma, uncomplicated; X58.XXXD Exposure to other specified factors, subsequent encounter; Z87.891 Personal history of nicotine dependence; Z87.440 Personal history of urinary (tract) infections; E11.9 Type 2 diabetes mellitus without complications; E66.9 Obesity, unspecified; F41.9 Anxiety disorder, unspecified; Z88.8 Allergy status to other drugs, medicaments and biological substances; Z88.5 Allergy status to narcotic agent; Z79.4 Long term (current) use of insulin
CPT/HCPCS: 99283; A9270

== ENCOUNTER 2016-10-14 11:53 | Emergency (ER) | payer MEDICAID ==
[2016-10-14 12:21] VITALS: BP 119/64
[2016-10-14] MEDS ORDERED: Acetaminophen/HYDROcodone 325-10 MG Tab PO ONE (12:33)
--- NOTE | 2016-10-14 12:33 | EDM.PDOC ---
ED HPI GENERAL MEDICAL PROBLEM - General Chief Complaint: Lower Extremity Injury/Pain Stated Complaint: PAIN Time Seen by Provider: 10/14/16 12:15 Source of Information: Reports: Patient, Family, Old Records, Provider (Dr. Burton), RN, RN Notes Reviewed History Limitations: Reports: No Limitations - History of Present Illness INITIAL COMMENTS - FREE TEXT/NARRATIVE: Pt comes to ER from [facility] with c/o uncontrolled pain from a right distal fibula fracture, and request for a "pain shot" and stronger pain pills than Dr. Burton prescribed. Pt received a Rx for hydrocodone on the day the fracture was diagnosed, which was to last until she could f/u in clinic. However, she returned to the ER yesterday and was out of pain medication because she "had to double the dose to get it to help". She was d/c'd from the ER yesterday with 4 tablets of hydrocodone and instructed to f/u in clinic today for pain management with her PCP. I spoke with Dr. Burton who states that just 15-30 minutes prior to pt arriving at the ER she gave the pt a prescription for [place] to control her pain. Pt states the the [place] does not help her pain. I explained to the pt that she is now under the care of her PCP and will be seen by the orthopedic surgeon tomorrow at 11:30AM, and that I cannot provide any further narcotic pain prescriptions to her for this condition. Pt is disappointed but accepts that she will not receive an injection or prescription from the ER today. 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) Right Feet Pain Score (Numeric/FACES): 10 - Related Data Allergies Allergy/AdvReac Type Severity Reaction Status Date / Time butorphanol tartrate Allergy Shortness Verified 10/14/16 12:09 [From Stadol] of Breath diclofenac Allergy Itching Verified 10/14/16 12:09 tramadol Allergy Difficulty Verified 10/14/16 12:09 Breathing Home Meds: Home Meds Insulin Aspart [Novolog Flexpen] 23 units SUBCUT ASDIRECTED 04/12/13 [History] Sertraline [Zoloft] 125 mg PO DAILY 06/14/14 [History] metFORMIN [Glucophage] 1,000 mg PO BID 06/14/14 [History] Insulin Detemir [Levemir] 65 unit SQ ACBREAKFAST 08/08/14 [History] Albuterol Sulfate [Proventil Hfa] 2 inhalation PO QID PRN 05/25/15 [History] Glimepride 2 mg PO BID 06/03/15 [History] Acetaminophen [Tylenol] 650 mg PO BID 08/07/15 [History] Ibuprofen 800 mg PO Q8HR PRN 08/07/15 [History] ALPRAZolam [Alprazolam] 1 tab PO TID PRN 10/19/15 [History] Insulin Detemir [Levemir] 45 unit SQ BEDTIME 10/29/15 [History] Hydrocodone/Acetaminophen [Hydrocodon-Acetaminophen 5-325] 1 tab PO Q6H PRN 04/20 [History] Past Medical History - Past Health History Medical/Surgical History: Denies Medical/Surgical History HEENT History: Reports: None Cardiovascular History: Reports: None Respiratory History: Reports: Asthma Gastrointestinal History: Reports: Other (See Below) Other Gastrointestinal History: patient has presented to the ED frequently for abdominal pain Genitourinary History: Reports: Pyelonephritis, UTI, 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 Hematologic History: Reports: None Immunologic History: Reports: None Oncologic (Cancer) History: Reports: None Dermatologic History: Reports: None - Infectious Disease History Infectious Disease History: Reports: Chicken Pox, MRSA Other Infectious Disease History: sore on leg. - Past Surgical History HEENT Surgical History: Reports: Tonsillectomy, Other (See Below) Musculoskeletal Surgical History: Reports: Carpal Tunnel Social & Family History - Family History Family Medical History: Noncontributory - Tobacco Use Smoking Status *Q: Former Smoker Years of Tobacco use: 2 Packs/Tins Daily: 0.1 Used Tobacco, but Quit: No Month Tobacco Last Used: 05 Second Hand Smoke Exposure: No - Caffeine Use Caffeine Use: Reports: Coffee, Tea Caffeine Use Comment: daily - Alcohol Use Days Per Week of Alcohol Use: 0 Number of Drinks Per Day: 1 Total Drinks Per Week: 0 - Recreational Drug Use Recreational Drug Use: No - Living Situation & Occupation Living situation: Reports: Other Review of Systems - Review of Systems Review Of Systems: ROS reveals no pertinent complaints other than HPI. ED EXAM, GENERAL - Physical Exam Exam: See Below Exam Limited By: No Limitations General Appearance: Alert, WD/WN, No Apparent Distress, Obese Respiratory/Chest: No Respiratory Distress Extremities: Other (splint boot is not removed) Neurological: Alert, Oriented, No Motor/Sensory Deficits Psychiatric: Normal Affect, Normal Mood Skin Exam: Warm, Dry Course - Vital Signs Last Recorded V/S: Last Vital Signs Temp 36.3 C 10/14/16 12:11 Pulse 75 10/14/16 12:11 Resp 16 10/14/16 12:11 BP 119/64 10/14/16 12:11 Pulse Ox 99 10/14/16 12:11 - Orders/Labs/Meds Meds: Medications Discontinued Medications Generic Name Dose Route Start Last Admin Trade Name Freq PRN Reason Stop Dose Admin Hydrocodone Bitart/Acetaminophen 1 tab 10/14/16 12:33 [place] 325-10 Mg PO 10/14/16 12:34 ONETIME ONE Departure - Departure Time of Disposition: 12:31 Disposition: Home, Self-Care 01 Condition: good Clinical Impression: Closed fracture of right distal fibula Qualifiers: Encounter type: subsequent encounter Fracture morphology: unspecified fracture morphology Fracture healing: with routine healing Qualified Code(s): S82.831D - Other fracture of upper and lower end of right fibula, subsequent encounter for closed fracture with routine healing - Discharge Information Forms: ED Department Discharge Additional Instructions: Follow up with your primary doctor for pain management.
== END 2016-10-14 12:50 | disposition home or self-care (01) ==
LOC: DL.ED 11:53
DX: S82.831D Other fracture of upper and lower end of right fibula, subsequent encounter for closed fracture with routine healing (principal); J45.909 Unspecified asthma, uncomplicated; E11.9 Type 2 diabetes mellitus without complications; E66.9 Obesity, unspecified; F41.9 Anxiety disorder, unspecified; Z87.891 Personal history of nicotine dependence; Z87.440 Personal history of urinary (tract) infections; Z79.4 Long term (current) use of insulin; Z79.84 Long term (current) use of oral hypoglycemic drugs; Z88.5 Allergy status to narcotic agent; Z88.8 Allergy status to other drugs, medicaments and biological substances; Z98.890 Other specified postprocedural states; Z79.899 Other long term (current) drug therapy
CPT/HCPCS: 99283; A9270

== ENCOUNTER 2016-11-23 16:37 | Emergency (ER) | payer MEDICAID ==
[2016-11-23 17:08] VITALS: BP 127/85
[2016-11-23] MEDS ORDERED: Acetaminophen/HYDROcodone 325-10 MG Tab PO ONE (20:11)
--- NOTE | 2016-11-23 20:15 | EDM.PDOC ---
ED HPI GENERAL MEDICAL PROBLEM - General Chief Complaint: Lower Extremity Injury/Pain Stated Complaint: ANKLE IS HURTING/CRACKING, [id number] Time Seen by Provider: 11/23/16 20:11 Source of Information: Reports: Patient History Limitations: Reports: No Limitations - History of Present Illness INITIAL COMMENTS - FREE TEXT/NARRATIVE: lost balance on uneven floor and re-injured right ankle. Right Ankle Pain Score (Numeric/FACES): 7 - Related Data Allergies Allergy/AdvReac Type Severity Reaction Status Date / Time butorphanol tartrate Allergy Shortness Verified 10/14/16 12:09 [From Stadol] of Breath diclofenac Allergy Itching Verified 10/14/16 12:09 tramadol Allergy Difficulty Verified 10/14/16 12:09 Breathing Home Meds: Home Meds Insulin Aspart [Novolog Flexpen] 23 units SUBCUT ASDIRECTED 04/12/13 [History] Sertraline [Zoloft] 125 mg PO DAILY 06/14/14 [History] metFORMIN [Glucophage] 1,000 mg PO BID 06/14/14 [History] Insulin Detemir [Levemir] 60 unit SQ ACBREAKFAST 08/08/14 [History] Albuterol Sulfate [Proventil Hfa] 2 inhalation PO QID PRN 05/25/15 [History] Glimepride 2 mg PO BID 06/03/15 [History] Acetaminophen [Tylenol] 650 mg PO BID 08/07/15 [History] Ibuprofen 800 mg PO Q8HR PRN 08/07/15 [History] ALPRAZolam [Alprazolam] 1 tab PO TID PRN 10/19/15 [History] Insulin Detemir [Levemir] 40 unit SQ BEDTIME 10/29/15 [History] Past Medical History - Past Health History Medical/Surgical History: Denies Medical/Surgical History HEENT History: Reports: None Cardiovascular History: Reports: High Cholesterol, Hypertension Respiratory History: Reports: Asthma Gastrointestinal History: Reports: Other (See Below) Other Gastrointestinal History: patient has presented to the ED frequently for abdominal pain Genitourinary History: Reports: Pyelonephritis, UTI, 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 Hematologic History: Reports: None Immunologic History: Reports: None Oncologic (Cancer) History: Reports: None Dermatologic History: Reports: None - Infectious Disease History Infectious Disease History: Reports: Chicken Pox, MRSA Other Infectious Disease History: sore on leg. - Past Surgical History Head Surgeries/Procedures: Reports: None HEENT Surgical History: Reports: Tonsillectomy, Other (See Below) Musculoskeletal Surgical History: Reports: Carpal Tunnel Social & Family History - Family History Family Medical History: Noncontributory - Tobacco Use Smoking Status *Q: Never Smoker Years of Tobacco use: 2 Packs/Tins Daily: 0.1 Used Tobacco, but Quit: No Month Tobacco Last Used: 05 Second Hand Smoke Exposure: No - Caffeine Use Caffeine Use: Reports: Coffee, Tea Caffeine Use Comment: daily - Alcohol Use Days Per Week of Alcohol Use: 1 Number of Drinks Per Day: 1 Total Drinks Per Week: 1 - Recreational Drug Use Recreational Drug Use: No - Living Situation & Occupation Living situation: Reports: Other Review of Systems - Review of Systems Review Of Systems: ROS reveals no pertinent complaints other than HPI. ED EXAM, GENERAL - Physical Exam Exam: See Below Exam Limited By: No Limitations General Appearance: Alert, WD/WN, Mild Distress, Other (crying) Ears: Hearing Grossly Normal Throat/Mouth: Normal Voice, No Airway Compromise Head: Atraumatic Neck: Non-Tender, Full Range of Motion Respiratory/Chest: No Respiratory Distress Cardiovascular: Regular Rate, Rhythm GI/Abdominal: Soft, Non-Tender Extremities: Other (right ankle tender R/P, NV wnl, gait limited to pain) Neurological: Alert, Oriented, Normal Cognition, No Motor/Sensory Deficits Psychiatric: Tearful Skin Exam: Warm, Dry Lymphatic: No Adenopathy Course - Vital Signs Last Recorded V/S: Last Vital Signs Temp 35.7 C 11/23/16 17:07 Pulse 88 11/23/16 17:07 Resp 16 11/23/16 17:07 BP 127/85 11/23/16 17:07 Pulse Ox 100 11/23/16 17:07 - Orders/Labs/Meds Orders: Active Orders 24 hr Category Date Time Status Acetaminophen/HYDROcodone [[place] 325-10 MG] Med 11/23/16 20:11 Once 1 tab PO ONETIME ONE Departure - Departure Time of Disposition: 20:13 Disposition: Home, Self-Care 01 Condition: Good Clinical Impression: Fracture of fibula - Discharge Information Instructions: Ankle Fracture, [id number] Forms: ED Department Discharge Additional Instructions: 1) elevate leg as much as possible 2) wear CAST BOOT 3) call ORTHO tomorrow about ankle fracture - My Orders Last 24 Hours: My Active Orders 11/23/16 20:11 Acetaminophen/HYDROcodone [[place] 325-10 MG] 1 tab PO ONETIME ONE - Assessment/Plan Last 24 Hours: My Active Orders 11/23/16 20:11 Acetaminophen/HYDROcodone [[place] 325-10 MG] 1 tab PO ONETIME ONE
== END 2016-11-23 20:22 | disposition home or self-care (01) ==
LOC: DL.ED 16:37
DX: S82.831D Other fracture of upper and lower end of right fibula, subsequent encounter for closed fracture with routine healing (principal); E78.00 Pure hypercholesterolemia, unspecified; I10 Essential (primary) hypertension; J45.909 Unspecified asthma, uncomplicated; E11.9 Type 2 diabetes mellitus without complications; E66.9 Obesity, unspecified; F41.9 Anxiety disorder, unspecified; Z98.890 Other specified postprocedural states; Z79.4 Long term (current) use of insulin; Z79.899 Other long term (current) drug therapy; W18.30XD Fall on same level, unspecified, subsequent encounter
CPT/HCPCS: 73610; 99284; A9270

== ENCOUNTER 2016-12-22 17:04 | Emergency (ER) | payer MEDICAID ==
[2016-12-22 17:21] VITALS: BP 137/74
--- NOTE | 2016-12-22 18:01 | EDM.PDOC ---
ED HPI GENERAL MEDICAL PROBLEM - General Chief Complaint: Lower Extremity Injury/Pain Stated Complaint: FRACTURED ANKLE/FELL AND BURNING PAIN Time Seen by Provider: 12/22/16 17:55 Source of Information: Reports: Patient History Limitations: Reports: No Limitations - History of Present Illness INITIAL COMMENTS - FREE TEXT/NARRATIVE: 31 yo [place] Female w/ PMHx. of Distal Fibia Fracture in October 2016. Pt. states today @ 12 :30 PM she tripped and fell while in her storage room and having more pain Onset: Today Onset Date: 12/22/16 Onset Time: 12:30 Duration: Hour(s): Location: Reports: Lower Extremity, Right Quality: Reports: Ache Severity: Moderate Improves with: Reports: Rest Worsens with: Reports: Movement Context: Reports: Trauma (Pt. reports tripping and falling backwards) Associated Symptoms: Reports: No Other Symptoms Right Feet Pain Score (Numeric/FACES): 7 - Related Data Allergies Allergy/AdvReac Type Severity Reaction Status Date / Time butorphanol tartrate Allergy Shortness Verified 12/22/16 17:21 [From Stadol] of Breath diclofenac Allergy Itching Verified 12/22/16 17:21 tramadol Allergy Difficulty Verified 12/22/16 17:21 Breathing Home Meds: Home Meds Insulin Aspart [Novolog Flexpen] 23 units SUBCUT ASDIRECTED 04/12/13 [History] Sertraline [Zoloft] 125 mg PO DAILY 06/14/14 [History] metFORMIN [Glucophage] 1,000 mg PO BID 06/14/14 [History] Insulin Detemir [Levemir] 60 unit SQ ACBREAKFAST 08/08/14 [History] Albuterol Sulfate [Proventil Hfa] 2 inhalation PO QID PRN 05/25/15 [History] Glimepride 2 mg PO BID 06/03/15 [History] Acetaminophen [Tylenol] 650 mg PO BID 08/07/15 [History] Ibuprofen 800 mg PO Q8HR PRN 08/07/15 [History] ALPRAZolam [Alprazolam] 1 tab PO TID PRN 10/19/15 [History] Insulin Detemir [Levemir] 40 unit SQ BEDTIME 10/29/15 [History] Acetaminophen/oxyCODONE [Percocet 325-5 MG] 1 tab PO ASDIRECTED PRN 12/22/16 [ History] oxyCODONE 7.5 mg PO BEDTIME 12/22/16 [History] Past Medical History - Past Health History Medical/Surgical History: Denies Medical/Surgical History HEENT History: Reports: None Cardiovascular History: Reports: High Cholesterol, Hypertension Respiratory History: Reports: Asthma Gastrointestinal History: Reports: Other (See Below) Other Gastrointestinal History: patient has presented to the ED frequently for abdominal pain Genitourinary History: Reports: Pyelonephritis, UTI, 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 Hematologic History: Reports: None Immunologic History: Reports: None Oncologic (Cancer) History: Reports: None Dermatologic History: Reports: None - Infectious Disease History Infectious Disease History: Reports: Chicken Pox, MRSA Other Infectious Disease History: sore on leg. - Past Surgical History Head Surgeries/Procedures: Reports: None HEENT Surgical History: Reports: Tonsillectomy, Other (See Below) Musculoskeletal Surgical History: Reports: Carpal Tunnel Social & Family History - Family History Family Medical History: Noncontributory - Tobacco Use Smoking Status *Q: Never Smoker Years of Tobacco use: 2 Packs/Tins Daily: 0.1 Used Tobacco, but Quit: No Month Tobacco Last Used: 05 Second Hand Smoke Exposure: No - Caffeine Use Caffeine Use: Reports: Coffee Caffeine Use Comment: daily - Alcohol Use Days Per Week of Alcohol Use: 1 Number of Drinks Per Day: 1 Total Drinks Per Week: 1 - Recreational Drug Use Recreational Drug Use: No - Living Situation & Occupation Living situation: Reports: Other Review of Systems - Review of Systems Review Of Systems: See Below Constitutional: Reports: No Symptoms Eyes: Reports: No Symptoms Ears: Reports: No Symptoms Nose: Reports: No Symptoms Mouth/Throat: Reports: No Symptoms Respiratory: Reports: No Symptoms Cardiovascular: Reports: No Symptoms GI/Abdominal: Reports: No Symptoms Genitourinary: Reports: No Symptoms Musculoskeletal: Reports: Joint Pain (right posterior-lateral ankle area), Joint Swelling Skin: Reports: No Symptoms Neurological: Reports: No Symptoms Psychiatric: Reports: No Symptoms ED EXAM, GENERAL - Physical Exam Exam: See Below Exam Limited By: No Limitations General Appearance: Alert, Obese (morbid) Ears: Normal External Exam Nose: Normal Inspection Throat/Mouth: Normal Inspection Head: Atraumatic Neck: Normal Inspection Respiratory/Chest: No Respiratory Distress Cardiovascular: Normal Peripheral Pulses Peripheral Pulses: 2+: Dorsalis Pedis (L), Dorsalis Pedis (R) Back Exam: Normal Inspection Extremities: Normal Capillary Refill, Limited Range of Motion (right posterior- lateral tenderness) Neurological: Alert, Oriented, CN II-XII Intact, Normal Cognition Psychiatric: Normal Affect, Normal Mood Skin Exam: Warm, Dry, Intact Lymphatic: No Adenopathy Course - Vital Signs Last Recorded V/S: Last Vital Signs Temp 35.2 C L 12/22/16 17:15 Pulse 72 12/22/16 17:15 Resp 16 12/22/16 17:15 BP 137/74 12/22/16 17:15 Pulse Ox 98 12/22/16 17:15 Departure - Departure Time of Disposition: 18:33 Disposition: Home, Self-Care 01 Condition: Good Clinical Impression: Contusion of fibula - Discharge Information Instructions: Tibial and Fibular Fracture, Adult Forms: ED Department Discharge Additional Instructions: Rest Apply Ice Pack to area of pain TID X 15 mins. Continue w/ present medications F/U w/ PCP and Orthopedics
== END 2016-12-22 18:48 | disposition home or self-care (01) ==
LOC: DL.ED 17:04
DX: S80.11XA Contusion of right lower leg, initial encounter (principal); I10 Essential (primary) hypertension; E78.00 Pure hypercholesterolemia, unspecified; F41.9 Anxiety disorder, unspecified; E11.9 Type 2 diabetes mellitus without complications; E66.9 Obesity, unspecified; Z88.8 Allergy status to other drugs, medicaments and biological substances; Z88.5 Allergy status to narcotic agent; Z79.4 Long term (current) use of insulin; Z87.440 Personal history of urinary (tract) infections; Z79.84 Long term (current) use of oral hypoglycemic drugs; W01.0XXA Fall on same level from slipping, tripping and stumbling without subsequent striking against object, initial encounter
CPT/HCPCS: 73610-RT; 99283

== ENCOUNTER 2016-12-29 20:44 | Emergency (ER) | payer MEDICAID ==
[2016-12-29 21:10] VITALS: BP 142/81
--- NOTE | 2016-12-29 22:10 | EDM.PDOC ---
ED HPI GENERAL MEDICAL PROBLEM - General Chief Complaint: Lower Extremity Injury/Pain Stated Complaint: foot pain [id number] Time Seen by Provider: 12/29/16 22:06 Source of Information: Reports: Patient History Limitations: Reports: No Limitations - History of Present Illness INITIAL COMMENTS - FREE TEXT/NARRATIVE: c/o exac foot pain. states already on oxy, discussed with pt re; pain management in ER in [place]. 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) Bilateral Feet Pain Score (Numeric/FACES): 8 - Related Data Allergies Allergy/AdvReac Type Severity Reaction Status Date / Time butorphanol tartrate Allergy Shortness Verified 12/29/16 20:50 [From Stadol] of Breath diclofenac Allergy Itching Verified 12/29/16 20:50 tramadol Allergy Difficulty Verified 12/29/16 20:50 Breathing Home Meds: Home Meds Insulin Aspart [Novolog Flexpen] 23 units SUBCUT ASDIRECTED 04/12/13 [History] Sertraline [Zoloft] 125 mg PO DAILY 06/14/14 [History] metFORMIN [Glucophage] 1,000 mg PO BID 06/14/14 [History] Insulin Detemir [Levemir] 60 unit SQ ACBREAKFAST 08/08/14 [History] Albuterol Sulfate [Proventil Hfa] 2 inhalation PO QID PRN 05/25/15 [History] Glimepride 2 mg PO BID 06/03/15 [History] Acetaminophen [Tylenol] 650 mg PO BID 08/07/15 [History] Ibuprofen 800 mg PO Q8HR PRN 08/07/15 [History] ALPRAZolam [Alprazolam] 1 tab PO TID PRN 10/19/15 [History] Insulin Detemir [Levemir] 40 unit SQ BEDTIME 10/29/15 [History] Acetaminophen/oxyCODONE [Percocet 325-5 MG] 1 tab PO ASDIRECTED PRN 12/22/16 [ History] oxyCODONE 5 mg PO TID PRN 12/22/16 [History] Gabapentin [Neurontin] 600 mg PO TID 12/29/16 [History] Past Medical History - Past Health History Medical/Surgical History: Denies Medical/Surgical History HEENT History: Reports: None Cardiovascular History: Reports: High Cholesterol, Hypertension Respiratory History: Reports: Asthma Gastrointestinal History: Reports: Other (See Below) Other Gastrointestinal History: patient has presented to the ED frequently for abdominal pain Genitourinary History: Reports: Pyelonephritis, UTI, 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 Hematologic History: Reports: None Immunologic History: Reports: None Oncologic (Cancer) History: Reports: None Dermatologic History: Reports: None - Infectious Disease History Infectious Disease History: Reports: Chicken Pox, MRSA Other Infectious Disease History: sore on leg. - Past Surgical History Head Surgeries/Procedures: Reports: None HEENT Surgical History: Reports: Tonsillectomy, Other (See Below) Musculoskeletal Surgical History: Reports: Carpal Tunnel Social & Family History - Family History Family Medical History: Noncontributory - Tobacco Use Smoking Status *Q: Never Smoker Years of Tobacco use: 2 Packs/Tins Daily: 0.1 Used Tobacco, but Quit: No Month Tobacco Last Used: 05 Second Hand Smoke Exposure: No - Caffeine Use Caffeine Use: Reports: Coffee, Tea Caffeine Use Comment: daily - Alcohol Use Days Per Week of Alcohol Use: 1 Number of Drinks Per Day: 1 Total Drinks Per Week: 1 - Recreational Drug Use Recreational Drug Use: No - Living Situation & Occupation Living situation: Reports: Other Review of Systems - Review of Systems Review Of Systems: ROS reveals no pertinent complaints other than HPI. ED EXAM, GENERAL - Physical Exam Exam: See Below Exam Limited By: No Limitations General Appearance: Alert, WD/WN, Mild Distress, Other (upset) Ears: Hearing Grossly Normal Throat/Mouth: Normal Voice, No Airway Compromise Head: Atraumatic Neck: Non-Tender, Full Range of Motion Respiratory/Chest: No Respiratory Distress Cardiovascular: Regular Rate, Rhythm GI/Abdominal: Soft, Non-Tender Extremities: Other (NV wnl, gait limited to pain) Neurological: Alert, Oriented, Normal Cognition, No Motor/Sensory Deficits Psychiatric: Flat Affect Skin Exam: Warm, Dry, Normal Color Lymphatic: No Adenopathy Course - Vital Signs Last Recorded V/S: Last Vital Signs Temp 35.5 C 12/29/16 21:06 Pulse 76 12/29/16 21:06 Resp 16 12/29/16 21:06 BP 142/81 H 12/29/16 21:06 Pulse Ox 100 12/29/16 21:06 Departure - Departure Time of Disposition: 22:08 Disposition: Home, Self-Care 01 Condition: Good Clinical Impression: Foot pain, bilateral - Discharge Information Additional Instructions: 1) continue pain meds from ortho 2) see ORTHO tomorrow for foot pain problem
== END 2016-12-29 22:10 | disposition home or self-care (01) ==
LOC: DL.ED 20:44
DX: M79.672 Pain in left foot (principal); M79.671 Pain in right foot; E78.00 Pure hypercholesterolemia, unspecified; I10 Essential (primary) hypertension; J45.909 Unspecified asthma, uncomplicated; F41.9 Anxiety disorder, unspecified; Z87.440 Personal history of urinary (tract) infections; E11.9 Type 2 diabetes mellitus without complications; E66.9 Obesity, unspecified; Z98.890 Other specified postprocedural states; Z88.5 Allergy status to narcotic agent; Z88.8 Allergy status to other drugs, medicaments and biological substances; Z79.4 Long term (current) use of insulin; Z79.84 Long term (current) use of oral hypoglycemic drugs
CPT/HCPCS: 99283

== ENCOUNTER 2017-01-15 12:47 | Emergency (ER) | payer MEDICAID ==
[2017-01-15 13:43] VITALS: BP 137/79
--- NOTE | 2017-01-15 13:55 | EDM.PDOC ---
ED HPI GENERAL MEDICAL PROBLEM - General Chief Complaint: Lower Extremity Injury/Pain Stated Complaint: [id number] FRACTURED ANKLE Time Seen by Provider: 01/15/17 13:44 Source of Information: Reports: Patient History Limitations: Reports: No Limitations - History of Present Illness INITIAL COMMENTS - FREE TEXT/NARRATIVE: 32 yo [place] Female c/o PMHx. ankle fracture with poor healing-union. Pt. is requesting Narcotic pain medication Pt. initial fracture was on October 06, 2016 Onset Date: 11/03/16 Onset Time: 12:00 Duration: Chronic Location: Reports: Lower Extremity, Right Quality: Reports: Ache Severity: Moderate Improves with: Reports: None Worsens with: Reports: Movement Associated Symptoms: Reports: No Other Symptoms Right Ankle Pain Score (Numeric/FACES): 9 - Related Data Allergies Allergy/AdvReac Type Severity Reaction Status Date / Time butorphanol tartrate Allergy Shortness Verified 01/19/17 21:31 [From Stadol] of Breath diclofenac Allergy Itching Verified 01/19/17 21:31 tramadol Allergy Difficulty Verified 01/19/17 21:31 Breathing Home Meds: Home Meds Insulin Aspart [Novolog Flexpen] 23 units SUBCUT ASDIRECTED 04/12/13 [History] Sertraline [Zoloft] 125 mg PO DAILY 06/14/14 [History] metFORMIN [Glucophage] 1,000 mg PO BID 06/14/14 [History] Insulin Detemir [Levemir] 60 unit SQ ACBREAKFAST 08/08/14 [History] Albuterol Sulfate [Proventil Hfa] 2 inhalation PO QID PRN 05/25/15 [History] Glimepride 2 mg PO BID 06/03/15 [History] Acetaminophen [Tylenol] 650 mg PO BID 08/07/15 [History] Ibuprofen 800 mg PO Q8HR PRN 08/07/15 [History] ALPRAZolam [Alprazolam] 1 tab PO TID PRN 10/19/15 [History] Insulin Detemir [Levemir] 40 unit SQ BEDTIME 10/29/15 [History] Acetaminophen/oxyCODONE [Percocet 325-5 MG] 1 tab PO ASDIRECTED PRN 12/22/16 [ History] Gabapentin [Neurontin] 600 mg PO TID 12/29/16 [History] Past Medical History - Past Health History Medical/Surgical History: Denies Medical/Surgical History HEENT History: Reports: None Cardiovascular History: Reports: High Cholesterol, Hypertension Respiratory History: Reports: Asthma Gastrointestinal History: Reports: Other (See Below) Other Gastrointestinal History: patient has presented to the ED frequently for abdominal pain Genitourinary History: Reports: Pyelonephritis, UTI, Recurrent 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 Hematologic History: Reports: None Immunologic History: Reports: None Oncologic (Cancer) History: Reports: None Dermatologic History: Reports: None - Infectious Disease History Infectious Disease History: Reports: Chicken Pox, MRSA Other Infectious Disease History: sore on leg. - Past Surgical History Head Surgeries/Procedures: Reports: None HEENT Surgical History: Reports: Tonsillectomy, Other (See Below) Musculoskeletal Surgical History: Reports: Carpal Tunnel Social & Family History - Family History Family Medical History: Noncontributory - Tobacco Use Smoking Status *Q: Never Smoker Years of Tobacco use: 2 Packs/Tins Daily: 0.1 Used Tobacco, but Quit: No Month Tobacco Last Used: 05 Second Hand Smoke Exposure: No - Caffeine Use Caffeine Use: Reports: Coffee, Tea Caffeine Use Comment: daily - Alcohol Use Days Per Week of Alcohol Use: 1 Number of Drinks Per Day: 1 Total Drinks Per Week: 1 - Recreational Drug Use Recreational Drug Use: No - Living Situation & Occupation Living situation: Reports: Other Review of Systems - Review of Systems Review Of Systems: See Below Constitutional: Reports: No Symptoms Eyes: Reports: No Symptoms Ears: Reports: No Symptoms Nose: Reports: No Symptoms Mouth/Throat: Reports: No Symptoms Respiratory: Reports: No Symptoms Cardiovascular: Reports: No Symptoms GI/Abdominal: Reports: No Symptoms Musculoskeletal: Reports: Other (right ankle) Skin: Reports: No Symptoms Neurological: Reports: No Symptoms Psychiatric: Reports: No Symptoms ED EXAM, GENERAL - Physical Exam Exam: See Below Exam Limited By: No Limitations General Appearance: Alert, No Apparent Distress, Obese Ears: Normal External Exam Ear Exam: Bilateral Ear: TM normal Nose: Normal Inspection Throat/Mouth: Normal Inspection Head: Atraumatic Neck: Normal Inspection Respiratory/Chest: No Respiratory Distress, Lungs Clear Cardiovascular: Normal Peripheral Pulses Peripheral Pulses: 2+: Dorsalis Pedis (L), Dorsalis Pedis (R) Back Exam: Normal Inspection Extremities: Normal Inspection, Normal Range of Motion, Other (right ankle) Neurological: Alert, Oriented, CN II-XII Intact Psychiatric: Normal Affect Skin Exam: Warm, Dry, Intact Lymphatic: No Adenopathy Course - Vital Signs Last Recorded V/S: Last Vital Signs Temp 35.3 C 01/15/17 13:00 Pulse 73 01/15/17 13:00 Resp 18 01/15/17 13:00 BP 137/79 01/15/17 13:00 Pulse Ox 100 01/15/17 13:00 - Orders/Labs/Meds Meds: Medications Discontinued Medications Generic Name Dose Route Start Last Admin Trade Name Nadirq PRN Reason Stop Dose Admin Hydrocodone Bitart/Acetaminophen 1 tab 01/15/17 13:58 01/15/17 14:00 [place] 325-10 Mg PO 01/15/17 13:59 1 tab ONETIME ONE Administration Departure - Departure Time of Disposition: 13:58 Disposition: Home, Self-Care 01 Condition: Good Clinical Impression: Non-healing fracture - Discharge Information Forms: ED Department Discharge Additional Instructions: rest F/U w/ Podiatry for pain medications (ONLY) Take the Tylenol # 3 Take 1 tab Q4-6hours # 15
[2017-01-15] MEDS ORDERED: Acetaminophen/HYDROcodone 325-10 MG Tab PO ONE (13:58)
== END 2017-01-15 14:09 | disposition home or self-care (01) ==
LOC: DL.ED 12:47 → EEVIPCON 12:47 → DL.ED 14:09
DX: S82.891P Other fracture of right lower leg, subsequent encounter for closed fracture with malunion (principal); I10 Essential (primary) hypertension; E78.00 Pure hypercholesterolemia, unspecified; E11.9 Type 2 diabetes mellitus without complications; E66.9 Obesity, unspecified; J45.909 Unspecified asthma, uncomplicated; Z98.890 Other specified postprocedural states; Z88.8 Allergy status to other drugs, medicaments and biological substances; Z79.4 Long term (current) use of insulin; Z88.5 Allergy status to narcotic agent; Z79.84 Long term (current) use of oral hypoglycemic drugs; Z79.899 Other long term (current) drug therapy; Z87.440 Personal history of urinary (tract) infections; X58.XXXA Exposure to other specified factors, initial encounter
CPT/HCPCS: 99283; A9270

== ENCOUNTER 2017-01-19 20:28 | Emergency (ER) | payer MEDICAID ==
[2017-01-19 21:31] VITALS: BP 154/86
--- NOTE | 2017-01-19 22:10 | EDM.PDOC ---
ED HPI GENERAL MEDICAL PROBLEM - General Chief Complaint: Lower Extremity Injury/Pain Stated Complaint: FRACTURED ANKLE, PAIN [id number] Time Seen by Provider: 01/19/17 22:05 Source of Information: Reports: Patient History Limitations: Reports: No Limitations - History of Present Illness INITIAL COMMENTS - FREE TEXT/NARRATIVE: states re-injured right ankle today, had h/o ORIF and been Tx with oxycodone but ortho won't see her till next month. tried to see podiatry but was referred to [facility]. explained to pt re; legality of pain meds but pt is now crying requesting norco which helps. 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 Right Ankle Pain Score (Numeric/FACES): 9 - Related Data Allergies Allergy/AdvReac Type Severity Reaction Status Date / Time butorphanol tartrate Allergy Shortness Verified 01/19/17 21:31 [From Stadol] of Breath diclofenac Allergy Itching Verified 01/19/17 21:31 tramadol Allergy Difficulty Verified 01/19/17 21:31 Breathing Home Meds: Home Meds Insulin Aspart [Novolog Flexpen] 23 units SUBCUT ASDIRECTED 04/12/13 [History] Sertraline [Zoloft] 125 mg PO DAILY 06/14/14 [History] metFORMIN [Glucophage] 1,000 mg PO BID 06/14/14 [History] Insulin Detemir [Levemir] 60 unit SQ ACBREAKFAST 08/08/14 [History] Albuterol Sulfate [Proventil Hfa] 2 inhalation PO QID PRN 05/25/15 [History] Glimepride 2 mg PO BID 06/03/15 [History] Acetaminophen [Tylenol] 650 mg PO BID 08/07/15 [History] Ibuprofen 800 mg PO Q8HR PRN 08/07/15 [History] ALPRAZolam [Alprazolam] 1 tab PO TID PRN 10/19/15 [History] Insulin Detemir [Levemir] 40 unit SQ BEDTIME 10/29/15 [History] Acetaminophen/oxyCODONE [Percocet 325-5 MG] 1 tab PO ASDIRECTED PRN 12/22/16 [ History] Gabapentin [Neurontin] 600 mg PO TID 12/29/16 [History] Past Medical History - Past Health History Medical/Surgical History: Denies Medical/Surgical History HEENT History: Reports: None Cardiovascular History: Reports: High Cholesterol, Hypertension Respiratory History: Reports: Asthma Gastrointestinal History: Reports: Other (See Below) Other Gastrointestinal History: patient has presented to the ED frequently for abdominal pain Genitourinary History: Reports: Pyelonephritis, UTI, Recurrent 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 Hematologic History: Reports: None Immunologic History: Reports: None Oncologic (Cancer) History: Reports: None Dermatologic History: Reports: None - Infectious Disease History Infectious Disease History: Reports: Chicken Pox, MRSA Other Infectious Disease History: sore on leg. - Past Surgical History Head Surgeries/Procedures: Reports: None HEENT Surgical History: Reports: Tonsillectomy, Other (See Below) Musculoskeletal Surgical History: Reports: Carpal Tunnel Social & Family History - Family History Family Medical History: Noncontributory - Tobacco Use Smoking Status *Q: Never Smoker Years of Tobacco use: 2 Packs/Tins Daily: 0.1 Used Tobacco, but Quit: No Month Tobacco Last Used: 05 Second Hand Smoke Exposure: No - Caffeine Use Caffeine Use: Reports: Coffee, Soda, Tea Caffeine Use Comment: daily - Alcohol Use Days Per Week of Alcohol Use: 1 Number of Drinks Per Day: 1 Total Drinks Per Week: 1 Date of Last Drink: 01/04/17 - Recreational Drug Use Recreational Drug Use: No - Living Situation & Occupation Living situation: Reports: Other Review of Systems - Review of Systems Review Of Systems: ROS reveals no pertinent complaints other than HPI. ED EXAM, GENERAL - Physical Exam Exam: See Below Exam Limited By: No Limitations General Appearance: Alert, WD/WN, Mild Distress, Other (tearful upset) Ears: Hearing Grossly Normal Throat/Mouth: Normal Voice, No Airway Compromise Head: Atraumatic Neck: Non-Tender, Full Range of Motion Respiratory/Chest: No Respiratory Distress Cardiovascular: Regular Rate, Rhythm GI/Abdominal: Soft, Non-Tender Extremities: Other (right ankle old ORIF scar intact, no gross D/D, mild local swelling, NV wnl, gait limited to pain) Neurological: Alert, Normal Cognition, No Motor/Sensory Deficits Psychiatric: Tearful Skin Exam: Warm, Dry, Normal Color Lymphatic: No Adenopathy Course - Vital Signs Last Recorded V/S: Last Vital Signs Temp 35.8 C 01/19/17 21:22 Pulse 94 01/19/17 21:22 Resp 18 01/19/17 21:22 BP 154/86 H 01/19/17 21:22 Pulse Ox 100 01/19/17 21:22 Departure - Departure Time of Disposition: 22:18 Disposition: Eloped 07 Condition: Fair Clinical Impression: Ankle pain, chronic Qualifiers: Laterality: right Qualified Code(s): M25.571 - Pain in right ankle and joints of right foot; G89.29 - Other chronic pain - Discharge Information Referrals: Billy Burton MD [Primary Care Provider] - Forms: ED Department Discharge
== END 2017-01-19 22:18 | disposition left against medical advice (07) ==
LOC: DL.ED 20:28
DX: M25.571 Pain in right ankle and joints of right foot (principal); G89.29 Other chronic pain; E11.9 Type 2 diabetes mellitus without complications; E66.9 Obesity, unspecified; E78.00 Pure hypercholesterolemia, unspecified; I10 Essential (primary) hypertension; J45.909 Unspecified asthma, uncomplicated; Z87.440 Personal history of urinary (tract) infections; Z88.6 Allergy status to analgesic agent; Z88.8 Allergy status to other drugs, medicaments and biological substances; Z79.4 Long term (current) use of insulin; Z79.84 Long term (current) use of oral hypoglycemic drugs
CPT/HCPCS: 99283

== ENCOUNTER 2017-01-28 08:23 | Emergency (ER) | payer SELFPAY ==
--- NOTE | 2017-01-28 08:33 | EDM.PDOC ---
ED HPI GENERAL MEDICAL PROBLEM - General Chief Complaint: General Stated Complaint: SEVERE TOOTHACHE Time Seen by Provider: 01/28/17 08:31 Source of Information: Reports: Patient, RN, RN Notes Reviewed - History of Present Illness INITIAL COMMENTS - FREE TEXT/NARRATIVE: Patient presents to the ER with c/o pain to the left lower posterior molar. She states she has been dealing with this pain for about a month. She has been told that she would not be able to get into a dentist appointment at [facility] until May. She states she was also told that she could come to the [facility] office at 7am each morning and wait for a walk in appointment to become available. She states she was late this morning and has not been able to get a walk in appointment. She says the pain is unbearable at this point. She states she has made an appointment with her PCP, Dr. Shepherd, for FridayFeb 03 hoping to get a referral for a dentist in [place]. She denies fever, chills , chest pain, sob. She states the pain is 8/10. She states she has been taking ibuprofen and using oral viscous lidocaine for the pain, which has not been helping. 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: NSAIDS, Other (see below) (oral viscous lidocaine) Left Tooth/Teeth Pain Score (Numeric/FACES): 8 - Related Data Allergies Allergy/AdvReac Type Severity Reaction Status Date / Time butorphanol tartrate Allergy Shortness Verified 01/28/17 08:34 [From Stadol] of Breath diclofenac Allergy Itching Verified 01/28/17 08:34 tramadol Allergy Difficulty Verified 01/28/17 08:34 Breathing Home Meds: Home Meds Insulin Aspart [Novolog Flexpen] 23 units SUBCUT ASDIRECTED 04/12/13 [History] Sertraline [Zoloft] 125 mg PO DAILY 06/14/14 [History] metFORMIN [Glucophage] 1,000 mg PO BID 06/14/14 [History] Insulin Detemir [Levemir] 60 unit SQ ACBREAKFAST 08/08/14 [History] Albuterol Sulfate [Proventil Hfa] 2 inhalation PO QID PRN 05/25/15 [History] Glimepride 2 mg PO BID 06/03/15 [History] Acetaminophen [Tylenol] 650 mg PO BID 08/07/15 [History] Ibuprofen 800 mg PO Q8HR PRN 08/07/15 [History] ALPRAZolam [Alprazolam] 1 tab PO TID PRN 10/19/15 [History] Insulin Detemir [Levemir] 40 unit SQ BEDTIME 10/29/15 [History] Gabapentin [Neurontin] 600 mg PO TID 12/29/16 [History] atorvaSTATin [Lipitor] 20 mg PO DAILY 01/28/17 [History] Past Medical History - Past Health History Medical/Surgical History: Denies Medical/Surgical History HEENT History: Reports: None Cardiovascular History: Reports: High Cholesterol, Hypertension Respiratory History: Reports: Asthma Gastrointestinal History: Reports: Other (See Below) Other Gastrointestinal History: patient has presented to the ED frequently for abdominal pain Genitourinary History: Reports: Pyelonephritis, UTI, Recurrent 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 Hematologic History: Reports: None Immunologic History: Reports: None Oncologic (Cancer) History: Reports: None Dermatologic History: Reports: None - Infectious Disease History Infectious Disease History: Reports: Chicken Pox, MRSA Other Infectious Disease History: sore on leg. - Past Surgical History Head Surgeries/Procedures: Reports: None HEENT Surgical History: Reports: Tonsillectomy, Other (See Below) Musculoskeletal Surgical History: Reports: Carpal Tunnel Social & Family History - Family History Family Medical History: Noncontributory - Tobacco Use Smoking Status *Q: Never Smoker Years of Tobacco use: 2 Packs/Tins Daily: 0.1 Used Tobacco, but Quit: No Month Tobacco Last Used: 05 Second Hand Smoke Exposure: No - Caffeine Use Caffeine Use: Reports: Coffee, Soda, Tea Caffeine Use Comment: daily - Alcohol Use Days Per Week of Alcohol Use: 1 Number of Drinks Per Day: 1 Total Drinks Per Week: 1 - Recreational Drug Use Recreational Drug Use: No - Living Situation & Occupation Living situation: Reports: Other ED ROS GENERAL - Review of Systems Review Of Systems: ROS reveals no pertinent complaints other than HPI. ED EXAM, GENERAL - Physical Exam Exam: See Below Exam Limited By: No Limitations General Appearance: Alert, WD/WN, No Apparent Distress Ears: Normal External Exam, Normal Canal, Hearing Grossly Normal, Normal TMs Ear Exam: Bilateral Ear: Auricle Normal, Canal Normal, TM normal Nose: Normal Inspection, Normal Mucosa, No Blood Throat/Mouth: Normal Inspection, Normal Lips, Normal Gums, Normal Oropharynx, Normal Voice, No Airway Compromise, Other (missing anterior left lower molar, posterior molar cracked with a hole in the middle) Head: Atraumatic, Normocephalic Neck: Normal Inspection, Supple, Non-Tender, Full Range of Motion Respiratory/Chest: No Respiratory Distress, Lungs Clear, Normal Breath Sounds, No Accessory Muscle Use, Chest Non-Tender Cardiovascular: Normal Peripheral Pulses, Regular Rate, Rhythm, No Edema, No Gallop, No JVD, No Murmur, No Rub Peripheral Pulses: 2+: Radial (L), Radial (R) GI/Abdominal: Normal Bowel Sounds, Soft, Non-Tender, No Organomegaly, No Distention, No Abnormal Bruit, No Mass (Female) Exam: Deferred Rectal (Female) Exam: Deferred Back Exam: Normal Inspection, Full Range of Motion, NT Extremities: Normal Inspection, Normal Range of Motion, Non-Tender, Normal Capillary Refill, No Pedal Edema Neurological: Alert, Oriented, Normal Cognition, Normal Gait, No Motor/Sensory Deficits Psychiatric: Normal Affect, Normal Mood Skin Exam: Warm, Dry, Intact, Normal Color, No Rash Lymphatic: Adenopathy (left posterior cervical) Course - Vital Signs Last Recorded V/S: Last Vital Signs Temp 96.3 F 01/28/17 08:38 Pulse 69 01/28/17 08:38 Resp 20 01/28/17 08:38 BP 156/78 H 01/28/17 08:38 Pulse Ox 100 01/28/17 08:38 - Orders/Labs/Meds Meds: Medications Discontinued Medications Generic Name Dose Route Start Last Admin Trade Name Freq PRN Reason Stop Dose Admin Hydrocodone Bitart/Acetaminophen 1 tab 01/28/17 08:56 01/28/17 09:01 [place] 325-5 Mg PO 01/28/17 08:57 1 tab ONETIME ONE Administration Departure - Departure Time of Disposition: 08:57 Disposition: Home, Self-Care 01 Condition: Good Clinical Impression: Pain due to dental caries - Discharge Information Instructions: Dental Caries, [id number] Forms: ED Department Discharge Additional Instructions: Attend appointment at [facility] TODAY at 1:00pm Check in to the Business office. Over the counter dental pain relievers such as anbesol as directed. Follow up with PCP for pain management.
[2017-01-28 08:42] VITALS: BP 156/78
[2017-01-28] MEDS ORDERED: Acetaminophen/HYDROcodone 325-5 MG Tab PO ONE (08:56)
== END 2017-01-28 09:07 | disposition home or self-care (01) ==
LOC: DL.ED 08:23
DX: K03.81 Cracked tooth (principal); K02.9 Dental caries, unspecified; E78.00 Pure hypercholesterolemia, unspecified; I10 Essential (primary) hypertension; E11.9 Type 2 diabetes mellitus without complications; E66.9 Obesity, unspecified; F41.9 Anxiety disorder, unspecified; Z88.6 Allergy status to analgesic agent; Z88.8 Allergy status to other drugs, medicaments and biological substances; Z79.4 Long term (current) use of insulin; Z79.899 Other long term (current) drug therapy; Z98.890 Other specified postprocedural states; Z87.440 Personal history of urinary (tract) infections
CPT/HCPCS: 99282; A9270

== ENCOUNTER 2017-02-16 15:06 | Emergency (ER) | payer MEDICAID ==
[2017-02-16] MEDS ORDERED: Silver Sulfadiazine 1% Crm 50 GM Tube TOP ONE (15:59)
[2017-02-16 16:00] VITALS: BP 126/77
--- NOTE | 2017-02-16 16:03 | EDM.PDOC ---
ED HPI GENERAL MEDICAL PROBLEM - General Chief Complaint: Lower Extremity Injury/Pain Stated Complaint: SORES ON BOTTOM OF FEET [id number] Time Seen by Provider: 02/16/17 15:58 Source of Information: Reports: Patient History Limitations: Reports: No Limitations - History of Present Illness INITIAL COMMENTS - FREE TEXT/NARRATIVE: 32 yo [place] Female c/o bilat plantar feet pain. PMHx. DM and Obese. Pt. states she takes Percocet and it is not helping Onset Date: 02/02/17 Onset Time: 12:00 Duration: Week(s): Location: Reports: Lower Extremity, Left, Lower Extremity, Right Quality: Reports: Ache Severity: Moderate Improves with: Reports: Rest Worsens with: Reports: Movement Context: Reports: Other (Obese, Dry Cracked Feet) Associated Symptoms: Reports: No Other Symptoms - Related Data Allergies Allergy/AdvReac Type Severity Reaction Status Date / Time butorphanol tartrate Allergy Shortness Verified 02/16/17 16:00 [From Stadol] of Breath diclofenac Allergy Itching Verified 02/16/17 16:00 tramadol Allergy Difficulty Verified 02/16/17 16:00 Breathing Home Meds: Home Meds Insulin Aspart [Novolog Flexpen] 23 units SUBCUT ASDIRECTED 04/12/13 [History] Sertraline [Zoloft] 125 mg PO DAILY 06/14/14 [History] metFORMIN [Glucophage] 1,000 mg PO BID 06/14/14 [History] Insulin Detemir [Levemir] 60 unit SQ ACBREAKFAST 08/08/14 [History] Albuterol Sulfate [Proventil Hfa] 2 inhalation PO QID PRN 05/25/15 [History] Glimepride 2 mg PO BID 06/03/15 [History] Acetaminophen [Tylenol] 650 mg PO BID 08/07/15 [History] Ibuprofen 800 mg PO Q8HR PRN 08/07/15 [History] ALPRAZolam [Alprazolam] 1 tab PO TID PRN 10/19/15 [History] Insulin Detemir [Levemir] 40 unit SQ BEDTIME 10/29/15 [History] Gabapentin [Neurontin] 600 mg PO TID 12/29/16 [History] atorvaSTATin [Lipitor] 20 mg PO DAILY 01/28/17 [History] Past Medical History - Past Health History Medical/Surgical History: Denies Medical/Surgical History HEENT History: Reports: None Cardiovascular History: Reports: High Cholesterol, Hypertension Respiratory History: Reports: Asthma Gastrointestinal History: Reports: Other (See Below) Other Gastrointestinal History: patient has presented to the ED frequently for abdominal pain Genitourinary History: Reports: Pyelonephritis, UTI, 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 Hematologic History: Reports: None Immunologic History: Reports: None Oncologic (Cancer) History: Reports: None Dermatologic History: Reports: None - Infectious Disease History Infectious Disease History: Reports: Chicken Pox, MRSA Other Infectious Disease History: sore on leg. - Past Surgical History Head Surgeries/Procedures: Reports: None HEENT Surgical History: Reports: Tonsillectomy, Other (See Below) Musculoskeletal Surgical History: Reports: Carpal Tunnel Social & Family History - Family History Family Medical History: Noncontributory - Tobacco Use Smoking Status *Q: Never Smoker Years of Tobacco use: 2 Packs/Tins Daily: 0.1 Used Tobacco, but Quit: No Month Tobacco Last Used: 05 Second Hand Smoke Exposure: No - Caffeine Use Caffeine Use: Reports: Coffee, Soda, Tea Caffeine Use Comment: daily - Alcohol Use Days Per Week of Alcohol Use: 1 Number of Drinks Per Day: 1 Total Drinks Per Week: 1 - Recreational Drug Use Recreational Drug Use: No - Living Situation & Occupation Living situation: Reports: Other Review of Systems - Review of Systems Review Of Systems: See Below Constitutional: Reports: No Symptoms Eyes: Reports: No Symptoms Ears: Reports: No Symptoms Nose: Reports: No Symptoms Mouth/Throat: Reports: No Symptoms Respiratory: Reports: No Symptoms Cardiovascular: Reports: No Symptoms GI/Abdominal: Reports: No Symptoms Genitourinary: Reports: No Symptoms Musculoskeletal: Reports: Other (Bilat plantar feet pain) Neurological: Reports: No Symptoms Psychiatric: Reports: No Symptoms ED EXAM, GENERAL - Physical Exam Exam: See Below Exam Limited By: No Limitations General Appearance: Alert, No Apparent Distress, Obese Ears: Normal External Exam Nose: Normal Inspection Throat/Mouth: Normal Inspection Head: Atraumatic Neck: Normal Inspection Respiratory/Chest: No Respiratory Distress Cardiovascular: Normal Peripheral Pulses Peripheral Pulses: 2+: Dorsalis Pedis (L), Dorsalis Pedis (R) Back Exam: Normal Inspection Extremities: Normal Inspection Neurological: Alert, Oriented, CN II-XII Intact Psychiatric: Normal Affect Skin Exam: Dry, Other (dry cracked skin to bilat feet plantar surface w/o cellulitis) Lymphatic: No Adenopathy Departure - Departure Time of Disposition: 16:03 Disposition: Home, Self-Care 01 Condition: Fair Clinical Impression: Dry skin dermatitis - Discharge Information Additional Instructions: Keep Feet skin Moisture high by using herbal soaps and silvadene cream daily Cont. w/ present pain medication F/U w/ PCP for PODIATRY referral
[2017-02-16] MEDS ORDERED: Acetaminophen/HYDROcodone 325-10 MG Tab PO ONE (16:28)
== END 2017-02-16 16:38 | disposition home or self-care (01) ==
LOC: DL.ED 15:06
DX: L85.3 Xerosis cutis (principal); E78.00 Pure hypercholesterolemia, unspecified; I10 Essential (primary) hypertension; E11.9 Type 2 diabetes mellitus without complications; E66.9 Obesity, unspecified; Z88.8 Allergy status to other drugs, medicaments and biological substances; Z79.899 Other long term (current) drug therapy; Z79.4 Long term (current) use of insulin
CPT/HCPCS: 99283; A9270

== ENCOUNTER 2017-11-12 14:05 | Emergency (ER) | payer MEDICAID ==
--- NOTE | 2017-11-12 14:11 | EDM.PDOC ---
ED HPI GENERAL MEDICAL PROBLEM - General Chief Complaint: Upper Extremity Injury/Pain Stated Complaint: [id number] BROKE RIGHT HAND Time Seen by Provider: 11/12/17 14:09 Source of Information: Reports: Patient, Old Records, RN, RN Notes Reviewed History Limitations: Reports: No Limitations - History of Present Illness INITIAL COMMENTS - FREE TEXT/NARRATIVE: Pt presents to ER from home by POV with c/o pain and bruising to Rt hand sustained yesterday when a massage table was dropped onto it. Pt describes the pain as a deep ache located along the ulnar side of the hand. She denies any other injury. Onset: Sudden Onset Date: 11/11/17 Duration: Constant Location: Reports: Upper Extremity, Right Quality: Reports: Ache Severity: Severe Improves with: Reports: Immobilization, Rest Worsens with: Reports: Movement Associated Symptoms: Reports: No Other Symptoms Treatments SEO STRATEGIST: Reports: Acetaminophen, NSAIDS Right Hand Pain Score (Numeric/FACES): 8 - Related Data Allergies Allergy/AdvReac Type Severity Reaction Status Date / Time butorphanol tartrate Allergy Shortness Verified 11/12/17 14:08 [From Stadol] of Breath diclofenac Allergy Itching Verified 11/12/17 14:08 tramadol Allergy Difficulty Verified 11/12/17 14:08 Breathing Home Meds: Home Meds Insulin Aspart [Novolog Flexpen] 23 units SUBCUT ASDIRECTED 04/12/13 [History] Sertraline [Zoloft] 150 mg PO DAILY 06/14/14 [History] metFORMIN [Glucophage] 1,000 mg PO BID 06/14/14 [History] Insulin Detemir [Levemir] 65 unit SQ ACBREAKFAST 08/08/14 [History] Albuterol Sulfate [Proventil Hfa] 2 inhalation PO QID PRN 05/25/15 [History] Glimepride 2 mg PO BID 06/03/15 [History] Acetaminophen [Tylenol] 650 mg PO BID 08/07/15 [History] Ibuprofen 800 mg PO Q8HR PRN 08/07/15 [History] ALPRAZolam [Alprazolam] 1 tab PO TID PRN 10/19/15 [History] Insulin Detemir [Levemir] 45 unit SQ BEDTIME 10/29/15 [History] Gabapentin [Neurontin] 600 mg PO TID 12/29/16 [History] atorvaSTATin [Lipitor] 20 mg PO DAILY 01/28/17 [History] oxyCODONE HCl/Acetaminophen [oxyCODONE-Acetaminophen 5-325] 1 tab PO QID [History] Past Medical History - Past Health History Medical/Surgical History: Denies Medical/Surgical History HEENT History: Reports: None Cardiovascular History: Reports: High Cholesterol, Hypertension Respiratory History: Reports: Asthma Gastrointestinal History: Reports: Other (See Below) Other Gastrointestinal History: patient has presented to the ED frequently for abdominal pain Genitourinary History: Reports: Pyelonephritis, UTI, 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 Hematologic History: Reports: None Immunologic History: Reports: None Oncologic (Cancer) History: Reports: None Dermatologic History: Reports: None - Infectious Disease History Infectious Disease History: Reports: Chicken Pox, MRSA Other Infectious Disease History: sore on leg. - Past Surgical History Head Surgeries/Procedures: Reports: None HEENT Surgical History: Reports: Tonsillectomy, Other (See Below) Musculoskeletal Surgical History: Reports: Carpal Tunnel Social & Family History - Family History Family Medical History: Noncontributory - Caffeine Use Caffeine Use: Reports: Coffee, Tea Caffeine Use Comment: daily - Living Situation & Occupation Living situation: Reports: Other Review of Systems - Review of Systems Review Of Systems: ROS reveals no pertinent complaints other than HPI. ED EXAM, GENERAL - Physical Exam Exam: See Below Exam Limited By: No Limitations General Appearance: Alert, No Apparent Distress, Obese Nose: Normal Inspection Throat/Mouth: Normal Inspection, Normal Voice, No Airway Compromise Head: Atraumatic, Normocephalic Neck: Normal Inspection, Non-Tender, Full Range of Motion Respiratory/Chest: No Respiratory Distress Cardiovascular: Regular Rate, Rhythm Peripheral Pulses: 3+: Radial (L), Radial (R) Back Exam: Normal Inspection Extremities: Normal Capillary Refill, Other (Rt hand tenderness to palpation overlying 4th and 5th MC with mild bruising, no visible swelling; skin is intact ) Neurological: Alert, Oriented, Normal Cognition, No Motor/Sensory Deficits Psychiatric: Normal Mood Skin Exam: Warm, Dry, Intact Course - Vital Signs Last Recorded V/S: Last Vital Signs Temp 36.6 C 11/12/17 14:12 Pulse 95 11/12/17 14:12 Resp 20 11/12/17 14:12 BP 154/89 H 11/12/17 14:12 Pulse Ox 98 11/12/17 14:12 - Orders/Labs/Meds Orders: Active Orders 24 hr Category Date Time Status Hand Comp Min 3V Rt [CR] Urgent Exams 11/12/17 14:16 Taken Departure - Departure Time of Disposition: 14:36 Disposition: Home, Self-Care 01 Condition: Good Clinical Impression: Contusion of right hand Qualifiers: Encounter type: initial encounter Qualified Code(s): S60.221A - Contusion of right hand, initial encounter - Discharge Information Instructions: Hand Contusion, [id number] Forms: ED Department Discharge Additional Instructions: Activity as tolerated. No fractures (broken bones) on x-ray. Follow up in clinic if not improving as expected in the next 7 to 10 days. - My Orders Last 24 Hours: My Active Orders 11/12/17 14:16 Hand Comp Min 3V Rt [CR] Urgent - Assessment/Plan Last 24 Hours: My Active Orders 11/12/17 14:16 Hand Comp Min 3V Rt [CR] Urgent
[2017-11-12 14:13] VITALS: BP 154/89
--- NOTE | 2017-11-12 14:35 | CR ---
Clinical history: 32-year-old female right hand injury (dropped massage table onto hand) Interpretation: Negative plain film exam. No sign of right hand or wrist fracture/dislocation. Sesamoid bones. No foreign bodies.
== END 2017-11-12 14:45 | disposition home or self-care (01) ==
LOC: DL.ED 14:05
DX: S60.221A Contusion of right hand, initial encounter (principal); E78.00 Pure hypercholesterolemia, unspecified; I10 Essential (primary) hypertension; E11.9 Type 2 diabetes mellitus without complications; J45.909 Unspecified asthma, uncomplicated; Z88.8 Allergy status to other drugs, medicaments and biological substances; Z88.5 Allergy status to narcotic agent; Z79.4 Long term (current) use of insulin; Z79.899 Other long term (current) drug therapy; W20.8XXA Other cause of strike by thrown, projected or falling object, initial encounter
CPT/HCPCS: 73130-RT; 99283